=== PATIENT | male | born 1965 | race Caucasian/White ===

== ENCOUNTER 2016-12-17 14:42 | Emergency (ER) | payer OTHER ==
--- NOTE | 2016-12-17 15:27 | DIAGNOSTIC IMAGING REPORT ---
PROCEDURE: XR CHEST 1 VIEW INDICATION: CHEST PAIN TECHNIQUE: Portable AP view (1515 hours). COMPARISON: Compared to chest x-ray on 12/26/2012. FINDINGS: Allowing for suboptimal inspiration and underexposure, there is mild to moderate basilar volume loss. Mid and upper lungs are clear. Heart and mediastinum are normal. Thorax is normal. IMPRESSION: 1. Allowing for suboptimal inspiration, there is mild to moderate basilar volume loss. 2. Otherwise negative chest.
--- NOTE | 2016-12-17 18:23 | ED NURSING NOTES ---
Clinical Report - Nurses [facility] [address] [place] [address] 12/17/2016 14:42 Patient: ELROY BAKER TRIAGE Triage time 14:52. Chief Complaint: CHEST PAIN. Alert. No acute distress. SEPSIS SCREEN: Sepsis Screen. Negative (no infection suspected/documented). --14:59 Minerva Randolph R.N. 14:52 12/17/16. BP: 152/107. HR: 95. RR: 18. O2 saturation: 95%. Temp: 97.6 F (oral). Pain level now: 0/10. --14:59 Minerva Randolph R.N. Weight: 238.1 kg stated. Height/Length: 76 inches Per Patient. BMI: 63.9. --14:57 Minerva Randolph R.N. Medications Metoprolol Tartrate Oral 100 mg. --15:42 Minerva Randolph R.N. Warfarin Sodium Oral 5 mg. --15:42 Minerva Randolph R.N. Glipizide Oral 2mg. --15:42 Minerva Randolph R.N. Morphine Sulfate ER Beads Oral 60 mg. --15:43 Minerva Randolph R.N. Nitroglycerin Translingual, as needed. --15:43 Minerva Randolph R.N. Lisinopril Oral 40 mg. --15:46 Minerva Randolph R.N. MetFORMIN HCl Oral (Tablet 1000 mg). --15:47 Minerva Randolph R.N. Allergies Penicillin. --14:57 Minerva Randolph R.N. Codeine. --14:57 Minerva Randolph R.N. Bees. --14:57 Minerva Randolph R.N. History Arrived by EMS. Historian: patient. This started just prior to arrival. ( Pt was at home watching TV when he had sudden 5/10 CP. He took some nitro and it resolved however it returned. When EMS arrived he was pain free.). He has had difficulty breathing. 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 PAST MEDICAL HX: Diabetes mellitus. Hypertension. Immunizations: up-to-date. SOCIAL HX: Smoker- current status unknown. No alcohol use or drug use. SELF HARM ASSESSMENT: A self harm assessment was performed. The patient answered "no" to the question "Do you have thoughts of harming or killing yourself?". ABUSE ASSESSMENT: Abuse assessment: ("yes") The patient was asked "Do you feel safe in your home?". --14:59 Minerva Randolph R.N. Primary physician (Feliciano). --15:00 Minerva Randolph R.N. PHYSICAL ASSESSMENT To room via stretcher. GENERAL / NEURO / PSYCH: Alert. Oriented X 4. Appears anxious. CVS: Cardiac rhythm: atrial fib/flutter. EXTREMITIES: No lower extremity edema. SKIN: Skin is moderately diaphoretic. Skin is non-tender. --15:01 Minerva Randolph R.N. NURSING PROGRESS NOTES Oxygen administered. Monitoring of patient in place. Blood samples drawn. Patient gowned. Reassurance given. Call light placed in reach. Side rails up. Bed placed in lowest position. Brakes of bed on. Patient ready for evaluation- chart flagged and ED physician notified. --15:02 Minerva Randolph R.N. Patient identifiers checked. --15:02 Minerva Randolph R.N. 14:48 12/17/2016 Site #1 started prior to arrival by EMS via IV in the left antecubital space with an 20g angiocath. Blood drawn: rainbow set. Labeled in the presence of the patient and sent to the lab. --15:03 Minerva Randolph R.N. 15:18 12/17/16. EKG time: (9239). EKG was performed by a tech and shown to the ED physician. --15:19 Onel Gomez 15:41 12/17/2016 Morphine IVP 8 mg given. via site #1. Allergies verified, confirmed 5 rights and sedative warning given to the patient. IV patency established. IV site checked: no pain, redness, or swelling. IV flushed thoroughly pre- and post-medication administration. IVP given by RN. --15:41 Minerva Randolph R.N. 17:36 12/17/2016 Morphine IVP 8 mg given over 2 minute(s) via site #1. IV patency established. IV site checked: no pain, redness, or swelling. IV flushed thoroughly pre- and post-medication administration. --17:36 Angela Pitt R.N. ( medicated for nurse who is unavailable at the moment. nurse informed.). --17:40 Angela Pitt R.N. 17:39 12/17/16. Pain level now 8/10. --17:40 Angela Pitt R.N. DISPOSITION / DISCHARGE Departure time: 1826. Condition at departure: improved. No learning barriers present. Discharge instructions provided and reviewed with the patient and family. Reviewed referral to a foreign food cook specialty and family practice for followup. Patient and family verbalized understanding. Written instructions provided. The patient was discharged home and accompanied by family. He left the Emergency Department in a wheelchair and via private vehicle. --18:37 Kamini Workman R.N. 18:26 12/17/16. BP: 132/81. HR: 78. RR: 17. O2 saturation: 97%. Temp: 98 F. Pain level now: 0/10. --18:37 Kamini Workman R.N. 18:25 12/17/2016 Site #1 removed upon discharge. Catheter intact. Bandage applied. --18:38 Kamini Workman R.N. Locked/Released at 12/17/2016 18:38 by Kamini Workman R.N.
--- NOTE | 2016-12-17 18:23 | ED ORDER SUMMARY ---
..... Patient: ELROY BAKER OrderSheet [facility] VisitID: [id number] [address] [place] [address] 51y, M Registration Date/Time: 12/17/2016 ORDER SHEET Weight: 238.1 kg (stated) Allergies: Penicillin, Codeine, Bees GENERAL ORDERS: Chest 1V Urgent (14:56 12/17/2016 Ayana Blanc) (Ack 14:59 KHoerner) (15:26 JBest R.N.) Bomb Squad Commander (Continuous) (CP) (14:56 12/17/2016 Ayana Blanc) (14:59 KHoerner) CBC w Diff Urgent (14:56 12/17/2016 Ayana Blanc) (Ack 14:59 KATHLEENoerner) (15:04 JBest R.N.) CMP Urgent (14:56 12/17/2016 Ayana Blanc) (Ack 14:59 KATHLEENoerner) (15:04 JBest R.N.) UA-Culture if indicated Urgent (14:56 12/17/2016 Ayana Blanc) (Ack 14:59 KATHLEENoerner) (15:04 JBest R.N.) PT with INR Urgent (14:56 12/17/2016 Ayana Blanc) (Ack 14:59 KATHLEENoerner) (15:04 JBest R.N.) PTT Urgent (14:56 12/17/2016 Ayana Blanc) (Ack 14:59 KATHLEENoercamryn) (15:04 JBest R.N.) Troponin-I Urgent (14:56 12/17/2016 Ayana Blanc) (Ack 14:59 KATHLEENoerner) (15:04 JBest R.N.) BNP Urgent (14:56 12/17/2016 Ayana Blanc) (Ack 14:59 KATHLEENoercamryn) (15:04 JBest R.N.) Pulse oximeter (14:56 12/17/2016 Ayana Blanc) (15:04 JBest R.N.) Oxygen (2 L/min) (NC) (14:56 12/17/2016 Ayana Blanc) (15:04 JBest R.N.) EKG - ER Stat (14:56 12/17/2016 Ayana Blanc) (14:59 KATHLEENoercamryn) Consult - Diesel Engine Mechanic (Prov) (16:52 12/17/2016 Ayana Blanc) (Ack 16:53 KATHLEENoercamryn) (16:57 oer) Troponin-I (redraw once now) Urgent (17:15 12/17/2016 Ayana Blanc) (17:28 JBest R.N.) MEDICATION ORDERS: IV FLUIDS: IV Saline Lock (14:56 12/17/2016 Ayana Blanc) (15:05 Galen R.N.) Morphine IV 8 mg (HIGH ALERT MEDICATION, NOW) (15:24 12/17/2016 Ayana Blanc) (15:41 JBraven R.N.) Morphine IV 8 mg (HIGH ALERT MEDICATION, NOW) (17:33 12/17/2016 Ayana Blanc) (17:36 SBalde R.N.) ORDER SHEET NOTES: [Electronically signed by Kamini Workman R.N. (18:38 12/17/2016)] [Electronically signed by Rajeev Pearl Dr. (18:35 12/19/2016)] [Electronically locked/signed by Kamini Workman R.N. (18:38 12/17/2016)]
--- NOTE | 2016-12-17 18:23 | ED ORDER SUMMARY ---
..... Patient: ELROY BAKER OrderSheet [facility] VisitID: [id number] [address] [place] [address] 51y, M Registration Date/Time: 12/17/2016 ORDER SHEET Weight: 238.1 kg (stated) Allergies: Penicillin, Codeine, Bees GENERAL ORDERS: Chest 1V Urgent (14:56 12/17/2016 Ayana Blanc) (Ack 14:59 KHoerner) (15:26 JBest R.N.) Cisco Network Engineer (Continuous) (CP) (14:56 12/17/2016 Ayana Blanc) (14:59 KHoerner) CBC w Diff Urgent (14:56 12/17/2016 Ayana Blanc) (Ack 14:59 KATHLEENoerner) (15:04 JBest R.N.) CMP Urgent (14:56 12/17/2016 Ayana Blanc) (Ack 14:59 KATHLEENoerner) (15:04 JBest R.N.) UA-Culture if indicated Urgent (14:56 12/17/2016 Ayana Blanc) (Ack 14:59 KATHLEENoerner) (15:04 JBest R.N.) PT with INR Urgent (14:56 12/17/2016 Ayana Blanc) (Ack 14:59 KATHLEENoerner) (15:04 JBest R.N.) PTT Urgent (14:56 12/17/2016 Ayana Blanc) (Ack 14:59 KATHLEENoercamryn) (15:04 JBest R.N.) Troponin-I Urgent (14:56 12/17/2016 Ayana Blanc) (Ack 14:59 KATHLEENoerner) (15:04 JBest R.N.) BNP Urgent (14:56 12/17/2016 Ayana Blanc) (Ack 14:59 KATHLEENoercamryn) (15:04 JBest R.N.) Pulse oximeter (14:56 12/17/2016 Ayana Blanc) (15:04 JBest R.N.) Oxygen (2 L/min) (NC) (14:56 12/17/2016 Ayana Blanc) (15:04 JBest R.N.) EKG - ER Stat (14:56 12/17/2016 Ayana Blanc) (14:59 KATHLEENoercamryn) Consult - Management Architect (Prov) (16:52 12/17/2016 Ayana Blanc) (Ack 16:53 KATHLEENoercamryn) (16:57 oer) Troponin-I (redraw once now) Urgent (17:15 12/17/2016 Ayana Blanc) (17:28 JBest R.N.) MEDICATION ORDERS: IV FLUIDS: IV Saline Lock (14:56 12/17/2016 Ayana Blanc) (15:05 Galen R.N.) Morphine IV 8 mg (HIGH ALERT MEDICATION, NOW) (15:24 12/17/2016 Ayana Blanc) (15:41 JBraven R.N.) Morphine IV 8 mg (HIGH ALERT MEDICATION, NOW) (17:33 12/17/2016 Ayana Blanc) (17:36 SBalde R.N.) ORDER SHEET NOTES: [Electronically signed by Kamini Workman R.N. (18:38 12/17/2016)] [Electronically signed by Rajeev Pearl Dr. (18:35 12/19/2016)] [Electronically locked/signed by Kamini Workman R.N. (18:38 12/17/2016)]
--- NOTE | 2016-12-17 18:23 | ED NURSING NOTES ---
Clinical Report - Nurses Located Within [facility] [address] [place] [address] 12/17/2016 14:42 Patient: ELROY BAKER TRIAGE Triage time 14:52. Chief Complaint: CHEST PAIN. Alert. No acute distress. SEPSIS SCREEN: Sepsis Screen. Negative (no infection suspected/documented). --14:59 Minerva Randolph R.N. 14:52 12/17/16. BP: 152/107. HR: 95. RR: 18. O2 saturation: 95%. Temp: 97.6 F (oral). Pain level now: 0/10. --14:59 Minerva Randolph R.N. Weight: 238.1 kg stated. Height/Length: 76 inches Per Patient. BMI: 63.9. --14:57 Minerva Randolph R.N. Medications Metoprolol Tartrate Oral 100 mg. --15:42 Minerva Randolph R.N. Warfarin Sodium Oral 5 mg. --15:42 Minerva Randolph R.N. Glipizide Oral 2mg. --15:42 Minerva Randolph R.N. Morphine Sulfate ER Beads Oral 60 mg. --15:43 Minerva Randolph R.N. Nitroglycerin Translingual, as needed. --15:43 Minerva Randolph R.N. Lisinopril Oral 40 mg. --15:46 Minerva Randolph R.N. MetFORMIN HCl Oral (Tablet 1000 mg). --15:47 Minerva Randolph R.N. Allergies Penicillin. --14:57 Minerva Randolph R.N. Codeine. --14:57 Minerva Randolph R.N. Bees. --14:57 Minerva Randolph R.N. History Arrived by EMS. Historian: patient. This started just prior to arrival. ( Pt was at home watching TV when he had sudden 5/10 CP. He took some nitro and it resolved however it returned. When EMS arrived he was pain free.). He has had difficulty breathing. 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 PAST MEDICAL HX: Diabetes mellitus. Hypertension. Immunizations: up-to-date. SOCIAL HX: Smoker- current status unknown. No alcohol use or drug use. SELF HARM ASSESSMENT: A self harm assessment was performed. The patient answered "no" to the question "Do you have thoughts of harming or killing yourself?". ABUSE ASSESSMENT: Abuse assessment: ("yes") The patient was asked "Do you feel safe in your home?". --14:59 Minerav Randolph R.N. Primary physician (Feliciano). --15:00 Minerva Randolph R.N. PHYSICAL ASSESSMENT To room via stretcher. GENERAL / NEURO / PSYCH: Alert. Oriented X 4. Appears anxious. CVS: Cardiac rhythm: atrial fib/flutter. EXTREMITIES: No lower extremity edema. SKIN: Skin is moderately diaphoretic. Skin is non-tender. --15:01 Minerva Randolph R.N. NURSING PROGRESS NOTES Oxygen administered. Monitoring of patient in place. Blood samples drawn. Patient gowned. Reassurance given. Call light placed in reach. Side rails up. Bed placed in lowest position. Brakes of bed on. Patient ready for evaluation- chart flagged and ED physician notified. --15:02 Minerva Randolph R.N. Patient identifiers checked. --15:02 Minerva Randolph R.N. 14:48 12/17/2016 Site #1 started prior to arrival by EMS via IV in the left antecubital space with an 20g angiocath. Blood drawn: rainbow set. Labeled in the presence of the patient and sent to the lab. --15:03 Minerva Randolph R.N. 15:18 12/17/16. EKG time: (1830). EKG was performed by a tech and shown to the ED physician. --15:19 Onel Gomez 15:41 12/17/2016 Morphine IVP 8 mg given. via site #1. Allergies verified, confirmed 5 rights and sedative warning given to the patient. IV patency established. IV site checked: no pain, redness, or swelling. IV flushed thoroughly pre- and post-medication administration. IVP given by RN. --15:41 Minerva Randolph R.N. 17:36 12/17/2016 Morphine IVP 8 mg given over 2 minute(s) via site #1. IV patency established. IV site checked: no pain, redness, or swelling. IV flushed thoroughly pre- and post-medication administration. --17:36 Angela Pitt R.N. ( medicated for nurse who is unavailable at the moment. nurse informed.). --17:40 Angela Pitt R.N. 17:39 12/17/16. Pain level now 8/10. --17:40 Angela Pitt R.N. DISPOSITION / DISCHARGE Departure time: 1826. Condition at departure: improved. No learning barriers present. Discharge instructions provided and reviewed with the patient and family. Reviewed referral to a skydiving instructor and family practice for followup. Patient and family verbalized understanding. Written instructions provided. The patient was discharged home and accompanied by family. He left the Emergency Department in a wheelchair and via private vehicle. --18:37 Kamini Workman R.N. 18:26 12/17/16. BP: 132/81. HR: 78. RR: 17. O2 saturation: 97%. Temp: 98 F. Pain level now: 0/10. --18:37 Kamini Workman R.N. 18:25 12/17/2016 Site #1 removed upon discharge. Catheter intact. Bandage applied. --18:38 Kamini Workman R.N. Locked/Released at 12/17/2016 18:38 by Kamini Workman R.N.
--- NOTE | 2016-12-17 18:23 | ED CLINICAL REPORT ---
Clinical Report - Physicians/Mid Levels [facility] [address] [place] [address] 12/17/2016 14:42 Patient: ELROY BAKER Time Seen: 1450. Arrived- By ambulance. Historian- patient and EMS personnel. HISTORY OF PRESENT ILLNESS Chief Complaint: CHEST PAIN. It is described as tightness and it is described as located in the right chest area and radiating (middle chest). This started today, is still present but is better now and is now gone. It was abrupt in onset and has been constant. Onset during rest. At its maximum, severity described as moderate. When seen in the E.D., it was gone. Modifying factors- relieved by nitroglycerin (one). Not worsened by anything. No nausea, vomiting, difficulty breathing or diaphoresis. (Patient reports no unilateral leg swelling, hemoptysis, recent trauma, or recent surgery.). No additional chest pain. Similar symptoms previously: (a few times). Recent medical care: Not recently seen/assessed. REVIEW OF SYSTEMS No fever, chills, pedal edema or skin rash. All systems otherwise negative, except as recorded above. PAST HISTORY See nurses notes. Risk factors for DVT/pulmonary embolism- obesity. Denies the following risk factors for DVT/PE - history of DVT and pulmonary embolism, recent surgery, recent OH and cancer. Denies the following risk factors for DVT/PE - clotting disorder, estrogens, immobility, advanced in age and vena cava filter. Medications: MetFORMIN HCl Oral (Tablet 1000 mg). Lisinopril Oral 40 mg. Nitroglycerin Translingual, as needed. Morphine Sulfate ER Beads Oral 60 mg. Glipizide Oral 2mg. Warfarin Sodium Oral 5 mg. Metoprolol Tartrate Oral 100 mg. Allergies: Bees. Codeine. Penicillin. SOCIAL HISTORY Smoker- current status unknown. No alcohol use or drug use. Recent travel. Is a local resident. FAMILY HISTORY Negative. ADDITIONAL NOTES The nursing notes have been reviewed. PHYSICAL EXAM Vital Signs: 12/17/2016 14:52 BP: 152/107. HR: 95. RR: 18. O2 saturation: 95%. Temp: 97.6 F. Pain level now: 0/10. Oxygen saturation normal. Appearance: Alert. Oriented X3. No acute distress. (Above-average BMI. polite, cooperative, pleasant.). Eyes: Pupils equal, round and reactive to light. Eyes normal inspection. Neck: Normal inspection. Neck supple. No JVD. CVS: Normal heart rate and rhythm. Heart sounds normal. Pulses normal. Respiratory: No respiratory distress. Breath sounds normal. Chest nontender. No rales, rhonchi or wheezes. Abdomen: Soft and nontender. Bowel sounds normal. Back: Normal external inspection. Skin: Skin warm and dry. Normal skin color. No rash. Normal skin turgor. Extremities: Extremities exhibit normal ROM. No lower extremity edema. LABS, X-RAYS, AND EKG EKG: No acute process. No acute ischemia. Normal EKG. Normal sinus rhythm. Normal P waves. Normal QASIM. Normal QRS complex. Normal axis. Normal ST and T waves, QT and QTc. The study has been interpreted contemporaneously by me. The study has been independently viewed by me. The EKG appears to be a good tracing. Chest X-ray: (PROCEDURE: XR CHEST 1 VIEW INDICATION: CHEST PAIN TECHNIQUE: Portable AP view (1515 hours). COMPARISON: Compared to chest x-ray on 12/26/2012. FINDINGS: Allowing for suboptimal inspiration and underexposure, there is mild to moderate basilar volume loss. Mid and upper lungs are clear. Heart and mediastinum are normal. Thorax is normal. IMPRESSION: 1. Allowing for suboptimal inspiration, there is mild to moderate basilar volume loss. 2. Otherwise negative chest.). Views: PA. Technique: under penetrated. The X-rays were independently viewed by me and interpreted by the radiologist. The X-rays were discussed with the radiologist (via pacs). Laboratory Tests: CBC w Diff: (DEONTE: 12/17/2016 14:55) ( MsgRcvd 12/17/2016 15:15) Final results Test Result Flag Units (Reference) WHITE BLOOD COUNT 10.1 K/uL (4.5-11.5) RED BLOOD COUNT 5.55 M/uL (4.50-5.90) HEMOGLOBIN 16.5 gm/dL (13.5-17.5) HEMATOCRIT 49.6 % (41.0-53.0) MEAN CELL VOLUME 89 fL (80-100) MEAN CORPUSCULAR HGB 30 pg (26-34) MEAN CORPUSCULAR HGB CONC 33 g/dL (31-37) RED CELL DISTRIBUTION WIDTH 13.3 % (11.6-14.8) PLATELET COUNT 199 K/uL (150-400) NEUTROPHIL % 70.6 % (50-75) LYMPH % 19.0 L % (25-40) MONO % 6.9 % (3-14) EOSINOPHIL % 3.0 % (0-4) BASOPHIL % 0.5 % (0-2) PT with INR: (DEONTE: 12/17/2016 14:55) ( [facility] 12/17/2016 15:27) Final results Test Result Flag Units (Reference) INR 1.2 (0.8-1.2) Low Intensity Therapy: INR 1.5-2.0 PT range 18.5-23.1Mod.Intensity Therapy: INR 2.0-3.0 PT range 23.1-31.5High Intensity Therapy: INR 2.5-3.5 PT range 27.4-35.5High Intensity Therapy 2: INR 3.0-4.0 PT range 31.5-39.3 APTT 35 H SECONDS (24-34) Troponin-I: (DEONTE: 12/17/2016 17:25) ( [facility] 12/17/2016 17:46) Final results Test Result Flag Units (Reference) TROPONIN I <0.05 ng/mL (0.00-1.5) TROPONIN REFERENCE RANGE:<0.1 NEGATIVE0.1-1.5 INDETERMINANT>1.5 POSITIVE BNP: (DEONTE: 12/17/2016 14:55) ( [facility] 12/17/2016 15:39) Final results Test Result Flag Units (Reference) B-TYPE NATRIURETIC PEPTIDE 69.1 pg/ml (5-100) CMP: (DEONTE: 12/17/2016 14:55) ( [facility] 12/17/2016 15:25) Final results Test Result Flag Units (Reference) GLUCOSE 324 H mg/dL (70-110) BUN 11 mg/dL (7-18) CREATININE 0.9 mg/dL (0.6-1.3) Estimated GFR >60 mL/min Estimated GFR- >60 mL/min Note: Persistent reduction over 3 months in eGFR<60 mL/min/1.73 m2 defines CKD. Patients with eGFR values>=60 mL/min/1.73 m2 may also have CKD if evidence ofpersistent proteinuria. Additional information may be foundat www.[email or web address].org. SODIUM 139 mmol/L (136-145) POTASSIUM 4.3 mmol/L (3.5-5.1) CHLORIDE 100 mmol/L (98-107) CARBON DIOXIDE 28 mmol/L (21-32) CALCIUM 9.4 mg/dL (8.5-10.1) TOTAL PROTEIN 7.9 g/dL (6.4-8.2) ALBUMIN 3.4 g/dL (3.3-5.0) BILIRUBIN, TOTAL 0.4 mg/dL (0.0-1.0) ALKALINE PHOSPHATASE 174 H U/L (46-116) AST (SGOT) 75 H U/L (15-37) ALT (SGPT) 163 H U/L (12-78) TROPONIN I <0.05 L ng/mL (0.00-1.5) TROPONIN REFERENCE RANGE:<0.1 NEGATIVE0.1-1.5 INDETERMINANT>1.5 POSITIVE . PROGRESS AND PROCEDURES Course of Care: he patient is a pleasant 51-year-old male presenting for evaluation of chest pain. Onset of symptoms is approximately 1 hour prior to arrival. Patient is currently resting in bed and in no acute distress. Patient is currently pain-free after taking nitroglycerin. At this time working diagnosis isacute myocardial infarction, pulmonary embolism, pneumonia,spontaneous pneumothorax. No other abnormalities noted on patient's physical exam and history. Patient will be evaluated with laboratory studies including EKG and chest x-ray. Patient is agreeable to the treatment and plan. Patient is noted to be a low risk on the well's criteria. do not feel further workup for pulmonary embolism is warranted at this time. Patient also does not have any pain or shortness of breath at this time. Initial troponin is noted to be negative. No evidence of congestive heart failure at this time. Rest of the patient's workup is unremarkable. Chest x-ray is clear however because of the patient's body habitus is slightly difficult to evaluate fully. We'll patient is here in the emergency department he expressed his uncomfortable situation with the bed. Patient reports he has a history of chronic back pain. No other abnormalities noted. Patient reports that his back started to hurt while sitting in the bed. Do not feel symptoms are consistent with thoracic aortic dissection as the patient does not have any pain at this time. Consult was placed to cardiology for further recommendations on the patient'spresentation here in the emergency department. Was able to speak to the on-call physician at [facility]. In reviewing the patient's past medical history, he had not received a stress test Patient is currently pain-freeandcardiology recommended patient be scheduled for an outpatient stress test. A note was placed with the patient's profile on the computer system For the scheduling department. Patient was given contact informationto schedule an appointment with a malt roaster. No further recommendations made. Patient is given pain medication while here in the emergency department for the chronic back pain and the uncomfortable bed. Patient wanted to leave the emergency department because of the uncomfortable bed. The patient was given additional pain medication and encouraged to wait for his second troponin given his time course of chest pain. Patient was agreeable to staying. The patient's a second troponin had returned and was unremarkable. Troponin is less than they detectable around. Because the patient's negative troponins 2,feel the patient is a good outpatient candidate. Head discussion with patient in regards to chest pain here in the emergency department as well as his workup here and diagnosis, home care, follow-up, and return precautions. All questions have been answered. The patient expressed Understanding of these instructions and was agreeable to them. Consult obtained from cardiology. Dr. Owens. CLINICAL IMPRESSION Chest pain characterized as "discomfort" .12 lead EKG performed. (right sided). 12/17/2016 14:52 BP: 152/107. HR: 95. RR: 18. O2 saturation: 95%. Temp: 97.6 F. Pain level now: 0/10. Blood pressure normal. Oxygen saturation normal. Chronic atrial flutter with controlled rate. INSTRUCTIONS Warnings: GENERAL WARNINGS: Return or contact your physician immediately if your condition worsens or changes unexpectedly, if not improving as expected, or if other problems arise. SPECIFICALLY, return if you develop chest, neck, jaw, shoulder, arm, or back pain, difficulty breathing, a fluttering sensation in your chest, lightheadedness, fainting, excessive fatigue, or sudden sweating. Your Current Medications: CONTINUE TAKING THE FOLLOWING MEDICATIONS: Glipizide Oral : 2mg. Lisinopril Oral : 40 mg. MetFORMIN HCl Oral : Tablet 1000 mg. Metoprolol Tartrate Oral : 100 mg. Morphine Sulfate ER Beads Oral : 60 mg. Nitroglycerin Translingual : prn. Warfarin Sodium Oral : 5 mg. Follow-up: Return to the emergency department as needed. Screening today revealed the patient's blood pressure to be in the hypertensive range. Blood pressure screening was not performed during this visit because the patient has an active diagnosis of hypertension. The patient should follow up with a primary care provider for blood pressure management. Understanding of the discharge instructions verbalized by patient. Follow-up with: Follow up in three days. Reason for referral: recheck today's concerns. Summary of care provided to patient via paper. Follow-up with: Follow up. Reason for referral: Cardiology at the [facility]. Call [phone] for an appointment. Please tell them you were here in the ED. . Summary of care provided to patient via paper. (Electronically signed by Rajeev Pearl Dr. 12/19/2016 18:35)
--- NOTE | 2016-12-19 18:35 | ED MED RECONCILIATION SUMMARY ---
Patient: ELROY BAKER Medication Reconciliation Report [facility] VisitID: [id number] [address] [place] [address] 51y, M Registration Date/Time: 12/17/2016 Weight: 238.1 kg Height/Length: 76 in. BMI: 63.9 ALLERGIES: Bees, Codeine, Penicillin The patient's Home Medications are listed below: CONTINUE TAKING THE FOLLOWING MEDICATIONS: Glipizide Oral 2mg Lisinopril Oral 40 mg MetFORMIN HCl Oral (1000 mg) Metoprolol Tartrate Oral 100 mg Morphine Sulfate ER Beads Oral 60 mg Nitroglycerin Translingual Warfarin Sodium Oral 5 mg The source(s) of the original Home Medication information: Not obtained. The following Medications were given to the patient in the Emergency Department: Morphine [IVP] IVP 8 mg, administered: 12/17/2016 3:41:00 PM Morphine [IVP] IVP 8 mg, administered: 12/17/2016 5:36:00 PM The following Medications were prescribed to the patient: None.
--- NOTE | 2016-12-19 18:35 | ED MED RECONCILIATION SUMMARY ---
Patient: ELROY BAKER Medication Reconciliation Report [facility] VisitID: [id number] [address] [place] [address] 51y, M Registration Date/Time: 12/17/2016 Weight: 238.1 kg Height/Length: 76 in. BMI: 63.9 ALLERGIES: Bees, Codeine, Penicillin The patient's Home Medications are listed below: CONTINUE TAKING THE FOLLOWING MEDICATIONS: Glipizide Oral 2mg Lisinopril Oral 40 mg MetFORMIN HCl Oral (1000 mg) Metoprolol Tartrate Oral 100 mg Morphine Sulfate ER Beads Oral 60 mg Nitroglycerin Translingual Warfarin Sodium Oral 5 mg The source(s) of the original Home Medication information: Not obtained. The following Medications were given to the patient in the Emergency Department: Morphine [IVP] IVP 8 mg, administered: 12/17/2016 3:41:00 PM Morphine [IVP] IVP 8 mg, administered: 12/17/2016 5:36:00 PM The following Medications were prescribed to the patient: None.
--- NOTE | 2016-12-19 18:35 | ED MAR SUMMARY ---
..... Medication Administration Record [facility] [address] [place] [address] Patient: ELROY BAKER Visit ID: [id number] 51y, M Weight: 238.1 kg Height/Length: 76 in BMI: 63.9 ALLERGIES: Bees, Codeine, Penicillin Given 15:41 12/17/2016 Minerva Randolph RBev Medication Administered: MORPHINE [IVP], Dose: 8 mg IVP, Site: #1 left AC. Medication Ordered: Morphine IV 8 mg (HIGH ALERT MEDICATION, NOW). Given 17:36 12/17/2016 Angela Pitt R.N. Medication Administered: MORPHINE [IVP], Dose: 8 mg IVP over 2 minute(s), Site: #1 left AC. Medication Ordered: Morphine IV 8 mg (HIGH ALERT MEDICATION, NOW).
--- NOTE | 2016-12-19 18:35 | ED DISCHARGE INSTRUCTIONS ---
Patient: ELROY BAKER General Instructions [facility] VisitID: [id number] [place] [address] 51y, M Registration Date/Time: 12/17/2016 Chest pain characterized as "discomfort" .12 lead EKG performed. (right sided). 12/17/2016 14:52 BP: 152/107. HR: 95. RR: 18. O2 saturation: 95%. Temp: 97.6 F. Pain level now: 0/10. Blood pressure normal. Oxygen saturation normal. Chronic atrial flutter with controlled rate. INSTRUCTIONS Warnings: GENERAL WARNINGS: Return or contact your physician immediately if your condition worsens or changes unexpectedly, if not improving as expected, or if other problems arise. SPECIFICALLY, return if you develop chest, neck, jaw, shoulder, arm, or back pain, difficulty breathing, a fluttering sensation in your chest, lightheadedness, fainting, excessive fatigue, or sudden sweating. Your Current Medications: CONTINUE TAKING THE FOLLOWING MEDICATIONS: Glipizide Oral : 2mg. Lisinopril Oral : 40 mg. MetFORMIN HCl Oral : Tablet 1000 mg. Metoprolol Tartrate Oral : 100 mg. Morphine Sulfate ER Beads Oral : 60 mg. Nitroglycerin Translingual : prn. Warfarin Sodium Oral : 5 mg. Follow-up: Return to the emergency department as needed. Screening today revealed the patient's blood pressure to be in the hypertensive range. Blood pressure screening was not performed during this visit because the patient has an active diagnosis of hypertension. The patient should follow up with a primary care provider for blood pressure management. Understanding of the discharge instructions verbalized by patient. Follow-up with: Follow up in three days. Reason for referral: recheck today's concerns. Summary of care provided to patient via paper. Follow-up with: Follow up. Reason for referral: Cardiology at the [facility]. Call [phone] for an appointment. Please tell them you were here in the ED. . Summary of care provided to patient via paper. ADDITIONAL INFORMATION Chest Pain, Uncertain Cause Chest pain can happen for a number of reasons. Sometimes the cause can not be determined. If yourcondition does not seem serious, and your pain does not appear to be coming from your heart, your doctor may recommend watching it closely. Sometimes the signs of a serious problem take more time to appear. Therefore, watch for the warning signs listed below. Home care After your visit, follow these recommendations: Rest today and avoid strenuous activity. Take any prescribed medicine as directed. Follow-up care Follow up with your doctor or this facility as instructed or if you do not start to feel better within 24 hours. Call 911 Get immediate medical attention if any of the following occur: A change in the type of pain: if it feels different, becomes more severe, lasts longer, or begins to spread into your shoulder, arm, neck, jaw or back Shortness of breath or increased pain with breathing Weakness, dizziness, or fainting Rapid heart beat Get prompt medical attention Call your doctor right away if any of the following occur: Cough with dark colored sputum (phlegm) or blood Fever of 100.4F(38C) or higher, or as directed by your health care provider Swelling, pain or redness in one leg Atrial Flutter Atrial flutteris a condition where the heart beats at a very rapid rate. It is due to a disturbance in the electrical pathways of the heart. It is a sign of heart disease or other health problems affecting the heart. The most common symptom ispalpitations. This is the feeling that your heart is fluttering or beating fast or hard. When the heart beats too fast, it does not pump blood very well. This can cause other symptoms such as anxiety, fatigue, shortness of breath, chest pain, dizziness or fainting. If this is your first episode of atrial flutter, and you have no heart or lung disease, you may never have another episode again. But in most cases, atrial flutter comes and goes, lasting from a few hours to a couple of days. Sometimes the atrial flutter does not ever go away and becomes chronic. Atrial flutter may be caused by disease of the heart or other conditions in the body that affect the heart: Coronary artery disease (arteriosclerosis) High blood pressure Disease of the heart valves Enlarged heart Atrial flutter can occur without heart disease due to: Overactive thyroid (hyperthyroid) Chronic lung disease (COPD, emphysema, bronchitis) Heavy alcohol use Cardiac stimulants (cocaine, amphetamines, diet pills, certain decongestant cold medicines, caffeine or nicotine) Infection Treating or removing these causes will improve success in the treatment of atrial flutter and reduce your risk of recurrence. Atrial flutter can alternate back and forth with another abnormal rhythm called atrial fibrillation. The risk of stroke is higher with these conditions. Proper treatment can reduce your risk. Home Care: Resume your usual activities as soon as you are feeling back to normal. If you smoke, stop smoking. Contact your doctor or a local stop-smoking program for help. Avoid stimulants (cocaine, amphetamines, diet pills, certain decongestant cold medicines, caffeine, or nicotine). If medicine is prescribed to prevent recurrence of atrial fibrillation, take it exactly as directed. Some medicines must be taken daily, not just when you have symptoms, in order to be effective. If you were prescribed warfarin (Coumadin) to reduce stroke risk, have your blood tested on a regular basis as advised by your doctor. This will ensure that the dose is correct for you. Follow Up With Your Doctor Or As Advised By Our Staff. Get Prompt Medical Attention If Any Of The Following Occur: Increasing shortness of breath Swellingof the legs Unexpected weight gain Chest pain or palpitations (the sense that your heart is fluttering, beating fast or hard) Fever of 100.4F (38C) or higher, or as directed by your healthcare provider Cough with dark-colored or bloody sputum (mucus) Pain, redness, or swelling in one leg Signs of stroke: Weakness or numbness of an arm or leg or one side of the face Difficulty with speech or vision Extreme drowsiness, confusion, dizziness or fainting You have been given the following additional information: Chest Pain, Uncertain Cause Atrial Flutter (Electronically signed by Rajeev Pearl Dr. 12/19/2016 18:35)
--- NOTE | 2016-12-19 18:35 | ED MAR SUMMARY ---
..... Medication Administration Record [facility] [address] [place] [address] Patient: ELROY BAKER Visit ID: [id number] 51y, M Weight: 238.1 kg Height/Length: 76 in BMI: 63.9 ALLERGIES: Bees, Codeine, Penicillin Given 15:41 12/17/2016 Minerva Randolph RBev Medication Administered: MORPHINE [IVP], Dose: 8 mg IVP, Site: #1 left AC. Medication Ordered: Morphine IV 8 mg (HIGH ALERT MEDICATION, NOW). Given 17:36 12/17/2016 Angela Pitt R.N. Medication Administered: MORPHINE [IVP], Dose: 8 mg IVP over 2 minute(s), Site: #1 left AC. Medication Ordered: Morphine IV 8 mg (HIGH ALERT MEDICATION, NOW).
== END 2016-12-17 18:27 | disposition home or self-care (01) ==
LOC: ED SRH 14:42
DX: I48.92 Unspecified atrial flutter (principal); I10 Essential (primary) hypertension; E11.9 Type 2 diabetes mellitus without complications; Z79.01 Long term (current) use of anticoagulants; Z79.84 Long term (current) use of oral hypoglycemic drugs; Z88.0 Allergy status to penicillin; Z88.5 Allergy status to narcotic agent; F17.210 Nicotine dependence, cigarettes, uncomplicated
CPT/HCPCS: 90074; 90100; 90616; 91320; 94001; 94060; 95059

== ENCOUNTER 2017-03-17 23:07 | Emergency (ER) | payer OTHER ==
--- NOTE | 2017-03-18 04:02 | ED ORDER SUMMARY ---
..... 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 verbal order read back to Grayson MARTINEZ) (Ack 23:48 KPage-Kuchan R.N.) (1:50 KPage-Kuchan R.N.) Labetalol IV 20 mg (HIGH ALERT MEDICATION, NOW) (00:03/18/2017 Grayson MARTINEZ) (Ack 0:44 CBradburn R.N.) (0:46 CBradburn R.N.) Dilaudid IV 2 mg (HIGH ALERT MEDICATION, NOW) (00:03/18/2017 Grayson MARTINEZ) (Ack 0:44 CBradburn R.N.) (0:44 CBradburn R.N.) IV Saline Lock (00:30 03/18/2017 Grayson MARTINEZ) (0:53 CBradburn R.N.) Dilaudid IV 2 mg (HIGH ALERT MEDICATION, NOW) (02:35 03/18/2017 Grayson MARTINEZ) (Ack 2:35 HSoule) (2:50 KPage-Kuchan R.N.) Vasotec IV 2.5 mg (NOW) (02:39 03/18/2017 Grasyon MARTINEZ) (Ack 2:43 Mariano Blanton) (3:10 Belgica Blanton) Fentanyl IV 100 mcg (HIGH ALERT MEDICATION, NOW) (03:40 03/18/2017 Grayson MARTINEZ) (3:50 Belgica Blanton) ORDER SHEET NOTES: [Electronically signed by Jojo Abraham R.N. (04:36 03/18/2017)] [Electronically signed by Katelynn Nuno MD (18:31 03/30/2017)] [Electronically locked/signed by Jojo Abraham R.N. (04:36 03/18/2017)]
--- NOTE | 2017-03-18 04:02 | ED ORDER SUMMARY ---
..... 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 verbal order read back to Grayson MARTINEZ) (Ack 23:48 KPage-Kuchan R.N.) (1:50 KPage-Kuchan R.N.) Labetalol IV 20 mg (HIGH ALERT MEDICATION, NOW) (00:03/18/2017 Grayson MARTINEZ) (Ack 0:44 CBradburn R.N.) (0:46 CBradburn R.N.) Dilaudid IV 2 mg (HIGH ALERT MEDICATION, NOW) (00:03/18/2017 Grayson MARTINEZ) (Ack 0:44 CBradburn R.N.) (0:44 CBradburn R.N.) IV Saline Lock (00:30 03/18/2017 Grayson MARTINEZ) (0:53 CBradburn R.N.) Dilaudid IV 2 mg (HIGH ALERT MEDICATION, NOW) (02:35 03/18/2017 Grayson MARTINEZ) (Ack 2:35 HSoule) (2:50 KPage-Kuchan R.N.) Vasotec IV 2.5 mg (NOW) (02:39 03/18/2017 Grayson MARTINEZ) (Ack 2:43 Mariano Blanton) (3:10 Belgica Blanton) Fentanyl IV 100 mcg (HIGH ALERT MEDICATION, NOW) (03:40 03/18/2017 Grayson MARTINEZ) (3:50 Belgica Blanton) ORDER SHEET NOTES: [Electronically signed by Jojo Abraham R.N. (04:36 03/18/2017)] [Electronically signed by Katelynn Nuno MD (18:31 03/30/2017)] [Electronically locked/signed by Jojo Abraham R.N. (04:36 03/18/2017)]
--- NOTE | 2017-03-18 04:02 | ED CLINICAL REPORT ---
Clinical Report - Physicians/Mid Levels [facility] [address] [place] [address] 03/17/2017 23:08 Patient: ELROY BAKER Time Seen: 23:35. Arrived- By private vehicle. Historian- patient and family. HISTORY OF PRESENT ILLNESS Chief Complaint: HEADACHE. Is still present. This started about 2 days ago. It is described as "pain" and pressure. Located in the frontal region. The patient has had nausea. No preceding symptoms, blurred vision, photophobia, numbness or weakness. No vomiting. Similar symptoms previously: Recent medical care: Not recently seen/assessed. REVIEW OF SYSTEMS No fever, muscle aches, sinus pressure, ear pain or sore throat. No head injury, chest pain, difficulty breathing, cough or abdominal pain. No diarrhea, pain with urination, skin rash, enlarged lymph nodes or back pain. All systems otherwise negative, except as recorded above. PAST HISTORY Problems: Atrial Fibrillation. Cardiovascular Risk Factors. Atrial Flutter. Diabetes Mellitus. Hypertension. Alcohol Intoxication. Syncope. Tetanus Status. Immunizations. Back Pain. Additional Surgeries: Back Surgery. Tonsillectomy. Medications: AmLODIPine Besylate Oral. Isosorbide Mononitrate Oral. Januvia Oral. HydrALAZINE HCl Oral. MetFORMIN HCl Oral (Tablet 1000 mg). Metoprolol Tartrate Oral 100 mg. Morphine Sulfate ER Beads Oral 60 mg. Nitroglycerin Translingual, as needed. Warfarin Sodium Oral 5 mg. Glipizide Oral 2mg. Lisinopril Oral 40 mg. Allergies: Bees. Codeine. Penicillin. SOCIAL HISTORY Smoker- current status unknown. No alcohol use or drug use. ADDITIONAL NOTES The nursing notes have been reviewed. PHYSICAL EXAM Vital Signs: 03/17/2017 23:14 BP: 187/111. HR: 84. RR: 21. O2 saturation: 94%. Pain level now: 7/10. Have been reviewed. Appearance: Alert. No acute distress. (Pt appears mildly uncomfortable. He is morbidly obese.). Eyes: Pupils equal, round and reactive to light. Eyes normal inspection. ENT: Nose normal. Neck: Normal inspection. Neck supple. CVS: Normal heart rate and rhythm. Heart sounds normal. Pulses normal. Respiratory: No respiratory distress. Breath sounds normal. Abdomen: Soft and nontender. Back: Normal inspection. No CVA tenderness. Skin: Skin warm and dry. Normal skin color. No rash. Normal skin turgor. Extremities: Extremities exhibit normal ROM. No lower extremity edema. Neuro: Oriented X 3. Alert. Mood/affect normal. Speech normal. Cranial nerves normal (as tested). No cerebellar findings. No motor deficit. No sensory deficit. LABS, X-RAYS, AND EKG EKG: EKG time: (2330). Atrial flutter. Rate: 97. Atrioventricular block present. Normal QRS complex. Normal axis. Normal ST and T waves, QT and QTc. Prior EKG unavailable. The study has been interpreted contemporaneously by me. The study has been independently viewed by me. The EKG appears to be a good tracing. Rhythm Strip #1: Time: (2335). Rate= 94. Atrial flutter. Regular rhythm. Narrow QRS complexes. No ectopy. Conduction normal. Normal ST segments and T waves. The study was interpreted by me. Laboratory Tests: CBC w Diff: (DEONTE: 03/18/2017 00:01) ( MsgRcvd 03/18/2017 01:02) Final results Test Result Flag Units (Reference) WHITE BLOOD COUNT 10.1 K/uL (4.5-11.5) RED BLOOD COUNT 5.36 M/uL (4.50-5.90) HEMOGLOBIN 15.9 gm/dL (13.5-17.5) HEMATOCRIT 47.5 % (41.0-53.0) MEAN CELL VOLUME 89 fL (80-100) MEAN CORPUSCULAR HGB 30 pg (26-34) MEAN CORPUSCULAR HGB CONC 34 g/dL (31-37) RED CELL DISTRIBUTION WIDTH 13.4 % (11.6-14.8) PLATELET COUNT 203 K/uL (150-400) NEUTROPHIL % 74.7 % (50-75) LYMPH % 19.0 L % (25-40) MONO % 4.3 % (3-14) EOSINOPHIL % 1.5 % (0-4) BASOPHIL % 0.5 % (0-2) CHEM 13 PANEL: (DEONTE: 03/18/2017 00:01) ( MsgRcvd 03/18/2017 01:01) Final results Test Result Flag Units (Reference) GLUCOSE 218 H mg/dL (70-110) BUN 16 mg/dL (7-18) CREATININE 0.8 mg/dL (0.6-1.3) Estimated GFR >60 mL/min Estimated GFR- >60 mL/min Note: Persistent reduction over 3 months in eGFR<60 mL/min/1.73 m2 defines CKD. Patients with eGFR values>=60 mL/min/1.73 m2 may also have CKD if evidence ofpersistent proteinuria. Additional information may be foundat www.kidney.org. SODIUM 139 mmol/L (136-145) POTASSIUM 4.2 mmol/L (3.5-5.1) CHLORIDE 103 mmol/L (98-107) CARBON DIOXIDE 27 mmol/L (21-32) CALCIUM 9.5 mg/dL (8.5-10.1) TOTAL PROTEIN 7.7 g/dL (6.4-8.2) ALBUMIN 3.5 g/dL (3.3-5.0) BILIRUBIN, TOTAL 0.3 mg/dL (0.0-1.0) ALKALINE PHOSPHATASE 113 U/L (46-116) AST (SGOT) 15 U/L (15-37) ALT (SGPT) 35 U/L (12-78) MAGNESIUM 1.8 mg/dL (1.8-2.4) CPK 47 U/L (24-260) TROPONIN I <0.05 ng/mL (0.00-1.5) TROPONIN REFERENCE RANGE:<0.1 NEGATIVE0.1-1.5 INDETERMINANT>1.5 POSITIVE . Pulse Oximetry: 03/17/2017 23:14 O2 saturation: 94%. (FIO2 - room air). Interpretation: normal. PROGRESS AND PROCEDURES Course of Care: Pt was given multiple doses of Dilaudid, as well as labetolol, Vasotec, and fentanyl. His blood pressure did not immediately respond to medication, but ultimately, pt did improve. Pt was worked up with labs and an EKG, which were unremarkable. He was too heavy for the CT scanner, and MRI was not available. However, he was neurologically intact, and did ultimately improve, and I did not feel that transfer for CT was indicated at this time. Pt states he can see Dr. Wiggins tomorrow to follow up. Patient counseled in person regarding the patient's stable condition, test results and diagnosis. Old medical records reviewed. Disposition: Discharged. Condition: stable and improved. CLINICAL IMPRESSION Acute migraine and tension headache. Hypertensive headache INSTRUCTIONS Warnings: Further evaluation is necessary. It is very important to follow up with a physician. SEDATIVE MEDICATION: You were given sedative medication during your visit. Do not drive or operate dangerous machinery for 8 hours. GENERAL WARNINGS: Return or contact your physician immediately if your condition worsens or changes unexpectedly, if not improving as expected, or if other problems arise. Your Current Medications: CONTINUE TAKING THE FOLLOWING MEDICATIONS: AmLODIPine Besylate Oral. Glipizide Oral : 2mg. HydrALAZINE HCl Oral. Isosorbide Mononitrate Oral. Januvia Oral. Lisinopril Oral : 40 mg. MetFORMIN HCl Oral : Tablet 1000 mg. Metoprolol Tartrate Oral : 100 mg. Morphine Sulfate ER Beads Oral : 60 mg. Nitroglycerin Translingual : prn. Warfarin Sodium Oral : 5 mg. Prescription Medications: Oxycodone/APAP 5 mg/325 mg: take 1-2 tablets orally every 4 hours as needed for pain. Dispense thirty (30). No refill. Understanding of the discharge instructions verbalized by patient and family. Follow-up with: Carson Wiggins MD, [facility], [phone], [facility], [address] [place] [address].[address], [address] Follow up. Call for the next available appointment. Reason for referral: Follow up ER visit for high blood pressure. Call first thing tomorrow morning. (Electronically signed by Katelynn Nuno MD 03/30/2017 18:31)
--- NOTE | 2017-03-18 04:02 | ED NURSING NOTES ---
Clinical Report - Nurses [facility] [address] [place] [address] 03/17/2017 23:08 Patient: ELROY BAKER TRIAGE Triage time 23:14 Mar 17 2017. Chief Complaint: HEADACHE and (pt c/on headache x 2 days, pt with hx of migraines, however "this is different, it's pressure" , yesterday pt c/o cp, with left arm pain x 2-3 weeks). Alert. No acute distress. SEPSIS SCREEN: Sepsis Screen. Negative (no infection suspected/documented). EDUARD COMA SCORE: Rosalia Coma Scale: 15- eyes open spontaneously (4); best verbal response- oriented x 4 (5); best motor response- obeys commands (6). --23:22 Jie Herrera R.N. 23:14 03/17/17. BP: 187/111. HR: 84. RR: 21. O2 saturation: 94%. Pain level now: 03/26. --23:22 Jie Herrera R.N. Weight: 238.1 kg stated. Height/Length: 76 inches Per Patient. BMI: 63.9. --23:21 Jie Herrera R.N. Medications Glipizide Oral 2mg. Lisinopril Oral 40 mg. --23:16 Jie Herrera R.N. MetFORMIN HCl Oral (Tablet 1000 mg). Metoprolol Tartrate Oral 100 mg. Morphine Sulfate ER Beads Oral 60 mg. Nitroglycerin Translingual, as needed. Warfarin Sodium Oral 5 mg. --23:16 Jie Herrera R.N. HydrALAZINE HCl Oral. --23:17 Jie Herrera R.N. Januvia Oral. --23:17 Jie Herrera R.N. Isosorbide Mononitrate Oral. --23:18 Jie Herrera R.N. AmLODIPine Besylate Oral. --23:18 Jie Herrera R.N. Medication/allergy information source: the patient and patient's family. --23:22 Jie Herrera R.N. Allergies Bees. Codeine. Penicillin. --23:16 Jie Herrera R.N. History Arrived by private vehicle. Historian: patient. Accompanied by family. Primary physician (kenn). This started 2 days. Treatment [employer]: Took Tylenol and ibuprofen. PAST MEDICAL HX: Immunizations: up-to-date. SOCIAL HX: Smoker- current status unknown (cigarette). No alcohol use or drug use. No infectious disease exposure. No known contact with a sick individual. ABUSE ASSESSMENT: No report of abuse. SELF HARM ASSESSMENT: A self harm assessment was performed. The patient answered "no" to the question "Do you have thoughts of harming or killing yourself?". NUTRITIONAL RISK ASSESSMENT: The nutritional risk assessment revealed no deficiencies. FALL RISK ASSESSMENT: Fall risk assessment completed. Risk factors identified include patient impairment of mobility. --23:22 Jie Herrera R.N. PROBLEMS: Cardiovascular Risk Factors. Atrial Flutter. Chest Pain. Diabetes Mellitus. Hypertension. Alcohol Intoxication. Syncope. Tetanus Status. Immunizations. Back Pain. --23:17 Jie Herrera R.N. Atrial Fibrillation. --23:24 Jie Herrera R.N. ADDITIONAL SURGERIES: Back Surgery. Tonsillectomy. --23:17 Jie Herrera R.N. Interventions ID and allergy band on patient. --23:22 Jie Herrera R.N. PHYSICAL ASSESSMENT To room via wheelchair. Patient gowned. GENERAL / NEURO / PSYCH: Alert. Oriented X 4. Appears in pain. HEENT: Pupils equal, round and reactive to light. RESPIRATORY: Mild respiratory distress. SKIN: Skin is warm and dry. --23:24 Jie Herrera R.N. NURSING PROGRESS NOTES 23:42 03/17/2017 Site #1 started via IV antecubital space with an 20g angiocath; one attempt. Blood drawn: rainbow set. Labeled in the presence of the patient and sent to the lab. Saline lock flushed with 10 mL saline. --23:47 Jie Herrera R.N. ( discussed with Dr Nuno pain control for pt- vo for dilaudid 2mg ivp and additional 1-2 in 20 minutes if needed.). --23:49 Jie Herrera R.N. 00:44 03/18/2017 Dilaudid (HYDROmorphone HCl PF) IVP 2 mg given over 2 minute(s) via site #1. Allergies verified, confirmed 5 rights and sedative warning given to the patient. IV patency established. IV site checked: no pain, redness, or swelling. IV flushed thoroughly pre- and post-medication administration. IVP given by RN. --00:44 Jojo Abraham R.N. 00:46 03/18/2017 Labetalol IVP 20 mg given over 2 minute(s) via site #1. Allergies verified and confirmed 5 rights. IV patency established. IV site checked: no pain, redness, or swelling. IV flushed thoroughly pre- and post-medication administration. IVP given by RN (bp 177/80). --00:46 Jojo Abraham R.N. GENERAL / NEURO / PSYCH: The patient reports headache that is severe and is described as throbbing. --00:47 Jojo Abraham R.N. 00:30 03/18/17. BP: 177/80 taken on the left arm, while lying. HR: 89 (regular and normal rate). RR: 18 (regular and unlabored). O2 saturation: 97% on room air. Temp: deferred. Pain level now: 04/26. --00:47 Jojo Abraham R.N. Two patient identifiers checked. Call light placed in reach. Side rails up x 2. Bed placed in lowest position. Brakes of bed on. --00:47 Jojo Abraham R.N. 23:52 03/17/2017 Dilaudid (HYDROmorphone HCl PF) IVP 2 mg given. via site #1. Allergies verified, confirmed 5 rights and sedative warning given to the patient and patient's family. IV patency established. IV site checked: no pain, redness, or swelling. IV flushed thoroughly pre- and post-medication administration. IVP given by RN. --01:50 Jie Herrera R.N. ( Patient Reports worsening headache. Provider notified of vitals). --02:32 Nataliya Vallecilloh 02:28 03/18/17. BP: 196/103. HR: 92. RR: 20. O2 saturation: 100% on room air. Pain level now: 03/26. --02:32 Yamilet Vallecillo 02:50 03/18/2017 Dilaudid (HYDROmorphone HCl PF) IVP 2 mg given. via site #1. Allergies verified, confirmed 5 rights and sedative warning given to the patient. IV patency established. IV site checked: no pain, redness, or swelling. IV flushed thoroughly pre- and post-medication administration. IVP given by RN. --02:50 Jie Herrera R.N. 02:56 03/18/17. BP: 202/85. HR: 107. RR: 21. O2 saturation: 97%. Pain level now 03/26. --02:57 Jie Herrera R.N. 03:08 03/18/17. BP: 190/108 taken on the left arm, while lying. HR: 106 (regular and tachycardic). RR: 18 (regular). O2 saturation: 96%. Temp: deferred. Pain level now: 03/26. --03:09 Jojo Abraham R.N. Two patient identifiers checked. Call light placed in reach. Side rails up x 2. Bed placed in lowest position. Brakes of bed on. --03:09 Jojo Abraham R.N. 03:09 03/18/2017 Vasotec IVP 2.5 mg given over 3 minute(s) via site #1. Allergies verified and confirmed 5 rights. IV patency established. IV site checked: no pain, redness, or swelling. IV flushed thoroughly pre- and post-medication administration. IVP given by RN (190/108). --03:10 Jojo Abraham R.N. ( pt diaphoretic, A&Ox4, still c/o pain will continue to monitor. medicated per MD orders). GENERAL / NEURO / PSYCH: The patient reports headache is still present and is currently moderate in severity. Appears in pain. --03:13 Jojo Abraham R.N. 03:48 03/18/2017 Fentanyl IVP 100 mcg given over 2 minute(s) via site #1. Allergies verified, confirmed 5 rights and sedative warning given to the patient. IV patency established. IV site checked: no pain, redness, or swelling. IV flushed thoroughly pre- and post-medication administration. IVP given by RN. --03:50 Jojo Abraham R.N. DISPOSITION / DISCHARGE 04:17 03/18/2017 Site #1 removed upon discharge. Catheter intact. Manual pressure and bandage applied. --04:28 Jojo Abraham R.N. Departure time: 7. Condition at departure: improved and stable. No learning barriers present. Discharge instructions provided and reviewed with the patient. Reviewed medication(s) side effects, precautions, dosing and course information. Prescription(s) given to the patient. Reviewed referral to family practice for followup. Follow up contact number [phone]. Patient verbalized understanding. Written instructions provided in Korean. The patient was discharged home and accompanied by spouse. He left the Emergency Department ambulatory and via private vehicle. Spouse driving. --04:28 Jojo Abraham R.N. 04:23 03/18/17. BP: 195/105 taken on the left arm, while lying. HR: 109 (regular and tachycardic). RR: 24 (regular and unlabored). O2 saturation: 97% on room air. Temp: deferred. Pain level now: 5/10. Additional comments: MD aware and ok with D/C. --04:28 Jooj Abraham R.N. Locked/Released at 03/18/2017 4:36 by Jojo Abraham R.N.
--- NOTE | 2017-03-30 18:31 | ED MED RECONCILIATION SUMMARY ---
Patient: ELROY BAKER Medication Reconciliation Report [facility] VisitID: [id number] [place] [address] 52y, M Registration Date/Time: 03/17/2017 Weight: 238.1 kg Height/Length: 76 in. BMI: 63.9 ALLERGIES: Bees, Codeine, Penicillin The patient's Home Medications are listed below: CONTINUE TAKING THE FOLLOWING MEDICATIONS: AmLODIPine Besylate Oral Glipizide Oral 2mg HydrALAZINE HCl Oral Isosorbide Mononitrate Oral Januvia Oral Lisinopril Oral 40 mg MetFORMIN HCl Oral (1000 mg) Metoprolol Tartrate Oral 100 mg Morphine Sulfate ER Beads Oral 60 mg Nitroglycerin Translingual Warfarin Sodium Oral 5 mg The source(s) of the original Home Medication information: patient's family member patient The following Medications were given to the patient in the Emergency Department: Dilaudid [IVP] IVP 2 mg, administered: 03/18/2017 12:44:00 AM Labetalol [IVP] IVP 20 mg, administered: 03/18/2017 12:46:00 AM Dilaudid [IVP] IVP 2 mg, administered: 03/17/2017 11:52:00 PM Dilaudid [IVP] IVP 2 mg, administered: 03/18/2017 2:50:00 AM Vasotec [IVP] IVP 2.5 mg, administered: 03/18/2017 3:09:00 AM Fentanyl [IVP] IVP 100 mcg, administered: 03/18/2017 3:48:00 AM The following Medications were prescribed to the patient: Oxycodone/APAP 5 mg/325 mg: take 1-2 tablets orally every 4 hours as needed for pain. Dispense thirty (30). No refill. -- Katelynn Nuno MD
--- NOTE | 2017-03-30 18:31 | ED MAR SUMMARY ---
..... Medication Administration Record [facility] [address] [place] [address] Patient: ELROY BAKER Visit ID: [id number] 52y, M Weight: 238.1 kg Height/Length: 76 in BMI: 63.9 ALLERGIES: Bees, Codeine, Penicillin Given 23:52 03/17/2017 Jie Herrera R.N. Medication Administered: DILAUDID [IVP] (HYDROMORPHONE HCL PF), Dose: 2 mg IVP, Site: #1 AC. Medication Ordered: Dilaudid IV 2 mg (HIGH ALERT MEDICATION, NOW). Given 00:44 03/18/2017 Jojo Abraham R.N. Medication Administered: DILAUDID [IVP] (HYDROMORPHONE HCL PF), Dose: 2 mg IVP over 2 minute(s), Site: #1 AC. Medication Ordered: Dilaudid IV 2 mg (HIGH ALERT MEDICATION, NOW). Given 00:46 03/18/2017 Jojo Abraham R.N. Medication Administered: LABETALOL [IVP], Dose: 20 mg IVP over 2 minute(s), Site: #1 AC. Medication Ordered: Labetalol IV 20 mg (HIGH ALERT MEDICATION, NOW). Given 02:50 03/18/2017 Jie Herrera R.N. Medication Administered: DILAUDID [IVP] (HYDROMORPHONE HCL PF), Dose: 2 mg IVP, Site: #1 AC. Medication Ordered: Dilaudid IV 2 mg (HIGH ALERT MEDICATION, NOW). Given 03:09 03/18/2017 Jojo Abraham R.N. Medication Administered: VASOTEC [IVP], Dose: 2.5 mg IVP over 3 minute(s), Site: #1 AC. Medication Ordered: Vasotec IV 2.5 mg (NOW). Given 03:48 03/18/2017 Jojo Abraham R.N. Medication Administered: FENTANYL [IVP], Dose: 100 mcg IVP over 2 minute(s), Site: #1 AC. Medication Ordered: Fentanyl IV 100 mcg (HIGH ALERT MEDICATION, NOW).
--- NOTE | 2017-03-30 18:31 | ED MAR SUMMARY ---
..... Medication Administration Record [facility] [address] [place] [address] Patient: ELROY BAKER Visit ID: [id number] 52y, M Weight: 238.1 kg Height/Length: 76 in BMI: 63.9 ALLERGIES: Bees, Codeine, Penicillin Given 23:52 03/17/2017 Jie Herrera R.N. Medication Administered: DILAUDID [IVP] (HYDROMORPHONE HCL PF), Dose: 2 mg IVP, Site: #1 AC. Medication Ordered: Dilaudid IV 2 mg (HIGH ALERT MEDICATION, NOW). Given 00:44 03/18/2017 Jojo Abraham R.N. Medication Administered: DILAUDID [IVP] (HYDROMORPHONE HCL PF), Dose: 2 mg IVP over 2 minute(s), Site: #1 AC. Medication Ordered: Dilaudid IV 2 mg (HIGH ALERT MEDICATION, NOW). Given 00:46 03/18/2017 Jojo Abraham R.N. Medication Administered: LABETALOL [IVP], Dose: 20 mg IVP over 2 minute(s), Site: #1 AC. Medication Ordered: Labetalol IV 20 mg (HIGH ALERT MEDICATION, NOW). Given 02:50 03/18/2017 Jie Herrera R.N. Medication Administered: DILAUDID [IVP] (HYDROMORPHONE HCL PF), Dose: 2 mg IVP, Site: #1 AC. Medication Ordered: Dilaudid IV 2 mg (HIGH ALERT MEDICATION, NOW). Given 03:09 03/18/2017 Jojo Abraham R.N. Medication Administered: VASOTEC [IVP], Dose: 2.5 mg IVP over 3 minute(s), Site: #1 AC. Medication Ordered: Vasotec IV 2.5 mg (NOW). Given 03:48 03/18/2017 Jojo Abraham R.N. Medication Administered: FENTANYL [IVP], Dose: 100 mcg IVP over 2 minute(s), Site: #1 AC. Medication Ordered: Fentanyl IV 100 mcg (HIGH ALERT MEDICATION, NOW).
--- NOTE | 2017-03-30 18:31 | ED MED RECONCILIATION SUMMARY ---
Patient: ELROY BAKER Medication Reconciliation Report [facility] VisitID: [id number] [place] [address] 52y, M Registration Date/Time: 03/17/2017 Weight: 238.1 kg Height/Length: 76 in. BMI: 63.9 ALLERGIES: Bees, Codeine, Penicillin The patient's Home Medications are listed below: CONTINUE TAKING THE FOLLOWING MEDICATIONS: AmLODIPine Besylate Oral Glipizide Oral 2mg HydrALAZINE HCl Oral Isosorbide Mononitrate Oral Januvia Oral Lisinopril Oral 40 mg MetFORMIN HCl Oral (1000 mg) Metoprolol Tartrate Oral 100 mg Morphine Sulfate ER Beads Oral 60 mg Nitroglycerin Translingual Warfarin Sodium Oral 5 mg The source(s) of the original Home Medication information: patient's family member patient The following Medications were given to the patient in the Emergency Department: Dilaudid [IVP] IVP 2 mg, administered: 03/18/2017 12:44:00 AM Labetalol [IVP] IVP 20 mg, administered: 03/18/2017 12:46:00 AM Dilaudid [IVP] IVP 2 mg, administered: 03/17/2017 11:52:00 PM Dilaudid [IVP] IVP 2 mg, administered: 03/18/2017 2:50:00 AM Vasotec [IVP] IVP 2.5 mg, administered: 03/18/2017 3:09:00 AM Fentanyl [IVP] IVP 100 mcg, administered: 03/18/2017 3:48:00 AM The following Medications were prescribed to the patient: Oxycodone/APAP 5 mg/325 mg: take 1-2 tablets orally every 4 hours as needed for pain. Dispense thirty (30). No refill. -- Katelynn Nuno MD
--- NOTE | 2017-03-30 18:31 | ED DISCHARGE INSTRUCTIONS ---
Patient: ELROY BAKER General Instructions [facility] VisitID: [id number] [place] [address] 52y, M Registration Date/Time: 03/17/2017 Acute migraine and tension headache. Hypertensive headache INSTRUCTIONS Warnings: Further evaluation is necessary. It is very important to follow up with a physician. SEDATIVE MEDICATION: You were given sedative medication during your visit. Do not drive or operate dangerous machinery for 8 hours. GENERAL WARNINGS: Return or contact your physician immediately if your condition worsens or changes unexpectedly, if not improving as expected, or if other problems arise. Your Current Medications: CONTINUE TAKING THE FOLLOWING MEDICATIONS: AmLODIPine Besylate Oral. Glipizide Oral : 2mg. HydrALAZINE HCl Oral. Isosorbide Mononitrate Oral. Januvia Oral. Lisinopril Oral : 40 mg. MetFORMIN HCl Oral : Tablet 1000 mg. Metoprolol Tartrate Oral : 100 mg. Morphine Sulfate ER Beads Oral : 60 mg. Nitroglycerin Translingual : prn. Warfarin Sodium Oral : 5 mg. Prescription Medications: Oxycodone/APAP 5 mg/325 mg: take 1-2 tablets orally every 4 hours as needed for pain. Dispense thirty (30). No refill. Understanding of the discharge instructions verbalized by patient and family. Follow-up with: Carson Wiggins MD, [facility], [phone], [facility], [address] [place] [address] Follow up. Call for the next available appointment. Reason for referral: Follow up ER visit for high blood pressure. Call first thing tomorrow morning. ADDITIONAL INFORMATION Headache [Unspecified] The cause of your headache today is not clear, but it does not appear to be the sign of any serious illness. Under stress, some people tense the muscles of their shoulder, neck and scalp without knowing it. If this condition lasts long enough, a TENSION HEADACHE can occur. A MIGRAINE HEADACHE is caused by changes in blood flow to the brain. A migraine attack may be triggered by emotional stress, hormone changes during the menstrual cycle, oral contraceptives, alcohol use, certain foods containing tyramine, eye strain, weather changes, missing meals, lack of sleep or oversleeping. Other causes of headache include a viral illness with high fever, head injury with concussion, sinus, ear or throat infection, dental pain and TMJ (jaw joint) pain. More serious but less common causes of headache include stroke, brain hemorrhage, brain tumor, meningitis and encephalitis. Home Care: If you were given pain medicine for this headache, do not drive yourself home. Arrange for a ride, instead. When you get home, try to sleep. You should feel much better when you wake up. Apply heat to the back of your neck to relieve neck muscle spasm. Migraine headaches may respond best to an ice pack on the forehead or at the base of the skull. If you are having nausea or vomiting, follow a light diet until your headache is relieved. If you have a migraine type headache, use sunglasses when in the daylight or around bright indoor lighting until symptoms improve. Bright glaring light can worsen this kind of headache. Follow Up with your doctor if the headache is not better within the next 24 hours. If you have frequent headaches you should discuss a treatment plan with your primary care doctor. By being aware of the earliest signs of headache, and starting treatment right away, you may be able to stop the pain yourself. Get Prompt Medical Attention if any of the following occur: Worsening of your head pain or no improvement within 24 hours Repeated vomiting (unable to keep liquids down) Fever of 100.4F (38C) or higher, or as directed by your healthcare provider Stiff neck Extreme drowsiness, confusion or fainting Dizziness, vertigo (dizziness with spinning sensation) Weakness of an arm or leg or one side of the face Difficulty with speech or vision Hypertension, Out Of Control (Established) Your blood pressure was unusually high today. This can occur as a result of missing doses of your blood pressure medicine. Some asthma inhalers, decongestants, diet pills, and street drugs such as cocaine and amphetamine can worsen hypertension. An increase in body weight, increase in salt intake, smoking, and caffeine are other causes. Emotional upset or acute pain can cause a sudden rapid rise in blood pressure which may return to normal after a period of rest. A normal blood pressure is less than 140/90. The first (top) number is the systolic pressure. The second (bottom) number is the diastolic pressure. Hypertension exists when either the top number is 140 or higher, OR the bottom number is 90 or higher on repeated measurements. Home Care: All patients with high blood pressure should do the following to lower their pressure. If you are on blood pressure medicines, then these methods may reduce or eliminate your need for medicines in the future. Begin a weight-loss program if you are overweight. Reduce your salt intake. Avoid high-salt foods (olives, pickles, smoked meats, salted potato chips, etc.). Do not add salt to your food at the table. Use only small amounts of salt when cooking. Begin an exercise program. Discuss with your doctor what type of exercise program would be best for you. It doesnt have to be difficult. Even brisk walking for 20 minutes3 times a week is a good form of exercise. Avoid medicines which contain heart stimulants. This includes many cold and sinus decongestant pills and sprays as well as diet pills. Check the warnings about hypertension on the label. Stimulants such as amphetamine or cocaine could be lethal for someone with hypertension. Never take these. Limit your caffeine intake or switch to decaf. Stop smoking. If you are a long-time smoker, this can be hard. Enroll in a stop-smoking program to improve your chance of success. Talk to your physician about ways to improve your chance of success. Learning how to handle stress better is an important part of any program to lower blood pressure. Learn about relaxation methods such as meditation, yoga, or biofeedback. If medicines were prescribed, take them exactly as directed. Missing doses may cause your blood pressure to get out of control. Consider buying an automatic blood pressure machine (available at many pharmacies). Use this to monitor your blood pressure and report to your doctor. Follow Up: Regular visits to your own doctor for blood pressure checks and medicine adjustment is an important part of your care. Make a follow-up appointment as directed by our staff. Get Prompt Medical Attention if any of the following occur: Chest, arm, shoulder, neck, or upper back pain Shortness of breath Severe headache Throbbing or rushing sound in the ears Nosebleed Extreme drowsiness, confusion, or fainting Dizziness or vertigo (dizziness with spinning sensation) Weakness of an arm or leg or one side of the face Difficulty with speech or vision You have been given the following additional information: Headache, Unspecified Hypertension, Established, Out Of Control (Electronically signed by Katelynn Nuno MD 03/30/2017 18:31)
== END 2017-03-18 04:17 | disposition home or self-care (01) ==
LOC: ED SRH 23:07
DX: G44.209 Tension-type headache, unspecified, not intractable (principal); G43.909 Migraine, unspecified, not intractable, without status migrainosus; I10 Essential (primary) hypertension; I48.91 Unspecified atrial fibrillation; E11.9 Type 2 diabetes mellitus without complications; Z79.899 Other long term (current) drug therapy; Z79.84 Long term (current) use of oral hypoglycemic drugs; Z79.01 Long term (current) use of anticoagulants
CPT/HCPCS: 90100; 90616; 92610; 92720; 95059

== ENCOUNTER 2017-03-20 20:46 | Inpatient (IN) | payer OTHER ==
[~2017-03-20] VITALS: Ht 193 cm; Wt 238.0 kg
--- NOTE | 2017-03-20 22:07 | DIAGNOSTIC IMAGING REPORT ---
PROCEDURE: XR CHEST 1 VIEW INDICATION: SOB TECHNIQUE: Portable AP view 09:29 p.m. COMPARISON: Chest x-ray 12/17/2016. FINDINGS: Left basilar scarring. Heart and mediastinum are normal. Thorax is normal. IMPRESSION: 1. No acute changes 2. Left basilar scarring.
--- NOTE | 2017-03-20 22:20 | ED CLINICAL REPORT ---
Clinical Report - Physicians/Mid Levels [facility] [address] [place] [address] 03/20/2017 20:46 Patient: ELROY BAKER Time Seen: 21:05. Arrived- By private vehicle. Historian- patient and family. HISTORY OF PRESENT ILLNESS Chief Complaint: DYSPNEA. This started about 2 days ago and is still present. It was gradual in onset and has been waxing/waning. The dyspnea is described as moderate and is worsened by walking, is improved by rest and is improved with oxygen. The patient has had a cough, chest discomfort, dyspnea on exertion and dizziness. No sputum production, sweating episodes, wheezing, calf pain or foot swelling. Similar symptoms previously: Recent medical care: The patient was seen recently at this facility in the emergency department and a clinic. ( Pt was taking ntg but stopped due to headaches, now with increasing SOB). REVIEW OF SYSTEMS The patient has had joint pain, but not had weight loss. No eye irritation, sore throat, nasal discharge, sinus drainage or vomiting. No abdominal pain, diarrhea, black stools, bloody stools or headache. No fainting episodes, blurred vision, difficulty with urination, excessive urination or skin rash. No enlarged lymph nodes. All systems otherwise negative, except as recorded above. PAST HISTORY PCP: Dr Wiggins PROBLEMS: Hypertensive Headache. Headache. Atrial Fibrillation. Atrial Flutter. Chest Pain. Diabetes Mellitus. Hypertension. Alcohol Intoxication. Syncope. Back Pain Morbid Obesity SURGERY HX: Tonsillectomy. Back Left thumb. Medications: Glipizide Oral 2mg. HydrALAZINE HCl Oral. Januvia Oral. Lisinopril Oral 40 mg. MetFORMIN HCl Oral (Tablet 1000 mg). Metoprolol Tartrate Oral 100 mg. Morphine Sulfate ER Beads Oral 60 mg. Warfarin Sodium Oral 5 mg. AmLODIPine Besylate Oral. Allergies: Bees. Codeine. Penicillin. SOCIAL HISTORY Never smoker. No alcohol use or drug use. Residence: [place]. ADDITIONAL NOTES The nursing notes have been reviewed. PHYSICAL EXAM Vital Signs: 03/20/2017 20:51 BP: 158/82. HR: 116. RR: 28. O2 saturation: 95%. Temp: 97.6 F. Pain level now: 10/27. Appearance: Alert. Patient in moderate distress. Eyes: Eyes normal inspection. No pale conjunctivae or scleral icterus. ENT: Pharynx normal. Uvula midline. No nasal discharge or pharyngeal erythema. The mucous membranes are not dry. Neck: Normal inspection. No jugular venous distention. Neck supple. CVS: Tachycardia. Heart sounds normal. Respiratory: No respiratory distress. Decreased air movement. No wheezes, stridor, rales or chest wall tenderness. Abdomen: Soft and nontender. Severely obese. Back: Normal inspection. Skin: Skin warm and dry. Normal skin color. Normal skin turgor. Extremities: Extremities exhibit normal ROM. No calf tenderness. No lower extremity edema. Neuro: Oriented X 3. No motor deficit. LABS, X-RAYS, AND EKG EKG: EKG time: (20:57). Atrial flutter with 2 to 1 conduction (ventricular rate 120). Non-specific ST segment / T wave abnormalities. The study has been interpreted contemporaneously by me. The EKG appears to be a good tracing. Rhythm Strip #1: Atrial flutter (ventricular rate 115 - 150). Regular rhythm. Narrow QRS complexes. No ectopy. Chest X-ray: No acute disease. Views: AP (portable). Technique: poor inspiration. The X-rays were interpreted contemporaneously by me. A comparison with prior films reveals that the findings are unchanged. Laboratory Tests: CBC w Diff: (DEONTE: 03/20/2017 21:03) ( MsgRcvd 03/20/2017 21:24) Final results Test Result Flag Units (Reference) WHITE BLOOD COUNT 12.3 H K/uL (4.5-11.5) RED BLOOD COUNT 5.55 M/uL (4.50-5.90) HEMOGLOBIN 16.5 gm/dL (13.5-17.5) HEMATOCRIT 49.3 % (41.0-53.0) MEAN CELL VOLUME 89 fL (80-100) MEAN CORPUSCULAR HGB 30 pg (26-34) MEAN CORPUSCULAR HGB CONC 33 g/dL (31-37) RED CELL DISTRIBUTION WIDTH 13.5 % (11.6-14.8) PLATELET COUNT 228 K/uL (150-400) NEUTROPHIL % 76.0 H % (50-75) LYMPH % 17.7 L % (25-40) MONO % 4.5 % (3-14) EOSINOPHIL % 1.3 % (0-4) BASOPHIL % 0.5 % (0-2) PT with INR: (DEONTE: 03/20/2017 21:03) ( [facility] 03/20/2017 21:22) Final results Test Result Flag Units (Reference) INR 2.3 H (0.8-1.2) Low Intensity Therapy: INR 1.5-2.0 PT range 18.5-23.1Mod.Intensity Therapy: INR 2.0-3.0 PT range 23.1-31.5High Intensity Therapy: INR 2.5-3.5 PT range 27.4-35.5High Intensity Therapy 2: INR 3.0-4.0 PT range 31.5-39.3 BNP: (DEONTE: 03/20/2017 21:03) ( [facility] 03/20/2017 22:10) Final results Test Result Flag Units (Reference) B-TYPE NATRIURETIC PEPTIDE 116 H pg/ml (5-100) CMP: (DEONTE: 03/20/2017 21:03) ( [facility] 03/20/2017 22:01) Final results Test Result Flag Units (Reference) GLUCOSE 273 H mg/dL (70-110) BUN 15 mg/dL (7-18) CREATININE 1.0 mg/dL (0.6-1.3) Estimated GFR >60 mL/min Estimated GFR- >60 mL/min Note: Persistent reduction over 3 months in eGFR<60 mL/min/1.73 m2 defines CKD. Patients with eGFR values>=60 mL/min/1.73 m2 may also have CKD if evidence ofpersistent proteinuria. Additional information may be foundat www.kidney.org. SODIUM 139 mmol/L (136-145) POTASSIUM 4.0 mmol/L (3.5-5.1) CHLORIDE 101 mmol/L (98-107) CARBON DIOXIDE 22 mmol/L (21-32) CALCIUM 9.0 mg/dL (8.5-10.1) TOTAL PROTEIN 8.0 g/dL (6.4-8.2) ALBUMIN 3.5 g/dL (3.3-5.0) BILIRUBIN, TOTAL 0.3 mg/dL (0.0-1.0) ALKALINE PHOSPHATASE 110 U/L (46-116) AST (SGOT) 20 U/L (15-37) ALT (SGPT) 38 U/L (12-78) MAGNESIUM 1.7 L mg/dL (1.8-2.4) TROPONIN I <0.05 ng/mL (0.00-1.5) TROPONIN REFERENCE RANGE:<0.1 NEGATIVE0.1-1.5 INDETERMINANT>1.5 POSITIVE . Pulse Oximetry: 03/20/2017 20:51 O2 saturation: 95%. (FIO2 - room air). Interpretation: normal. PROGRESS AND PROCEDURES Course of Care: Nitroglycerin 1.5 inches paste inches. Nitroglycerin 0.4 mg tab x1 SL given. Normal Saline 500 mL IVPB given. Zofran 4 mg IVP given. Dilaudid 0.5 mg IVP given. 22:21 03/20/17. Patient is stable. Physical exam findings are improved. Symptoms better. Discussed case with hospitalist, (Frances - in ED 22:47). Reviewed test results. Agreed upon treatment plan. Call placed to patient's primary care provider Feliciano call placed 22:19 call returned 22:22. Patient/family counseled. Additional history sought (from family). Old ED records reviewed. Observation orders written. Disposition: Observation in Acute Care. Condition: stable and improved. CLINICAL IMPRESSION Acute dyspnea. Acute moderate left ventricular congestive heart failure. Acute moderate left ventricular congestive heart failure. Chronic atrial flutter. The patient has one or more high risk factors and/or two or more moderate risk factors for thromboembolism. The patient is prescribed warfarin or another FDA approved anticoagulant. Morbid obesity (BMI >=40) BMI 64 due to excess calories. Possible Obesity Hyperventilation Syndrome. (Electronically signed by Olivier Sagastume DO 03/21/2017 0:18)
--- NOTE | 2017-03-20 22:20 | ED ORDER SUMMARY ---
..... Patient: ELROY BAKER OrderSheet [facility] VisitID: [id number] [place] [address] 52y, M Registration Date/Time: 03/20/2017 ORDER SHEET Weight: 238.1 kg (stated) Allergies: Bees, Codeine, Penicillin GENERAL ORDERS: Chest 1V Urgent (21:03 03/20/2017 Ayana Blanc) (Ack 21:17 Timothy) (21:26 WONGanders R.N.) [employer] (Continuous) (SOB) (21:04 03/20/2017 Ayana Blanc) (21:15 Timothy) CBC w Diff Urgent (21:04 03/20/2017 Ayana Blanc) (Ack 21:17 [place]) CMP Urgent (21:04 03/20/2017 Ayana Blanc) (Ack 21:17 Timothy) UA-Culture if indicated Urgent (21:04 03/20/2017 Ayana Blanc) (Ack 21:17 [place]) PT with INR Urgent (21:04 03/20/2017 Ayana Blanc) (Ack 21:17 Timothy) Troponin-I Urgent (21:04 03/20/2017 Ayana Blanc) (Ack 21:17 RKaruga) TSH Urgent (21:04 03/20/2017 Ayana Blanc) (Ack 21:17 NAGELaruga) Magnesium Urgent (21:04 03/20/2017 Ayana Blanc) (Ack 21:17 Timothy) EKG - ER Stat (21:04 03/20/2017 Ayana Blanc) (21:14 RKaruga) Pulse oximeter (21:04 03/20/2017 Ayana Blanc) (21:15 RKaruga) BNP Urgent (21:29 03/20/2017 [facility] (Ack 21:35 RKaruga) Call (Place call to): (Dr Wiggins) (22:18 03/20/2017 PHctAdStackson DO) (22:22 RKaruga) MEDICATION ORDERS: NitroGLYCERIN Paste Topical 1.5 in. (NOW, to CW) (22:12 03/20/2017 [facility]) (22:28 SSambou R.N.) NitroGLYCERIN SL 0.4 mg (NOW) (22:12 03/20/2017 [facility]) (22:28 SSambou R.N.) Lovenox Subcut 120 mg (HIGH ALERT MEDICATION, NOW) (22:13 03/20/2017 [facility]) (22:30 SSambou R.N.) IV FLUIDS: IV Saline Lock (21:04 03/20/2017 Ayana Blanc) (21:20 SSambou R.N.) Dilaudid IV 0.5 mg (HIGH ALERT MEDICATION, NOW) (22:12 03/20/2017 [facility]) (22:29 SSambou R.N.) Zofran IV 4 mg (NOW) (22:13 03/20/2017 [facility]) (22:29 SSambou R.N.) ORDER SHEET NOTES: [Electronically signed by Sheriff Franny Rea (23:55 03/20/2017)] [Electronically signed by Olivier Sagastume DO (00:18 03/21/2017)] [Electronically locked/signed by Sheriff Franny Rea (23:55 03/20/2017)]
--- NOTE | 2017-03-20 22:20 | ED ORDER SUMMARY ---
..... Patient: ELROY BAKER OrderSheet [facility] VisitID: [id number] [place] [address] 52y, M Registration Date/Time: 03/20/2017 ORDER SHEET Weight: 238.1 kg (stated) Allergies: Bees, Codeine, Penicillin GENERAL ORDERS: Chest 1V Urgent (21:03 03/20/2017 Ayana Blanc) (Ack 21:17 Timothy) (21:26 WONGanders R.N.) Director Biostatistics (Continuous) (SOB) (21:04 03/20/2017 Ayana Blanc) (21:15 Timothy) CBC w Diff Urgent (21:04 03/20/2017 Ayana Blanc) (Ack 21:17 [place]) CMP Urgent (21:04 03/20/2017 Ayana Blanc) (Ack 21:17 Timothy) UA-Culture if indicated Urgent (21:04 03/20/2017 Ayana Blanc) (Ack 21:17 [place]) PT with INR Urgent (21:04 03/20/2017 Ayana Blanc) (Ack 21:17 Timothy) Troponin-I Urgent (21:04 03/20/2017 Ayana Blanc) (Ack 21:17 RKaruga) TSH Urgent (21:04 03/20/2017 Ayana Blanc) (Ack 21:17 ANGELaruga) Magnesium Urgent (21:04 03/20/2017 Ayana Blanc) (Ack 21:17 Timothy) EKG - ER Stat (21:04 03/20/2017 Ayana Blanc) (21:14 RKaruga) Pulse oximeter (21:04 03/20/2017 Ayana Blanc) (21:15 RKaruga) BNP Urgent (21:29 03/20/2017 [facility]) (Ack 21:35 RKaruga) Call (Place call to): (Dr Wiggins) (22:18 03/20/2017 PHnmE-Houseson DO) (22:22 RKaruga) MEDICATION ORDERS: NitroGLYCERIN Paste Topical 1.5 in. (NOW, to CW) (22:12 03/20/2017 [facility]) (22:28 SSambou R.N.) NitroGLYCERIN SL 0.4 mg (NOW) (22:12 03/20/2017 [facility]) (22:28 SSambou R.N.) Lovenox Subcut 120 mg (HIGH ALERT MEDICATION, NOW) (22:13 03/20/2017 [facility]) (22:30 SSambou R.N.) IV FLUIDS: IV Saline Lock (21:04 03/20/2017 Ayana Blanc) (21:20 SSambou R.N.) Dilaudid IV 0.5 mg (HIGH ALERT MEDICATION, NOW) (22:12 03/20/2017 [facility]) (22:29 SSambou R.N.) Zofran IV 4 mg (NOW) (22:13 03/20/2017 [facility]) (22:29 SSambou R.N.) ORDER SHEET NOTES: [Electronically signed by Sheriff Franny Rea (23:55 03/20/2017)] [Electronically signed by Olivier Sagastume DO (00:18 03/21/2017)] [Electronically locked/signed by Sheriff Franny Rea (23:55 03/20/2017)]
--- NOTE | 2017-03-20 22:20 | ED NURSING NOTES ---
Clinical Report - Nurses [facility] [place] [address] 03/20/2017 20:46 Patient: ELROY BAKER TRIAGE Triage time 20:51. Acuity: LEVEL 2. Chief Complaint: SHORTNESS OF BREATH and DIFFICULTY BREATHING. --20:57 Sheriff Rea R.N. 20:51 03/20/17. BP: 158/82. HR: 116. RR: 28. O2 saturation: 95%. Temp: 97.6 F. Pain level now: 10/27. --20:57 Sheriff Rea R.N. Weight: 238.1 kg stated. Height/Length: 76 inches Per Patient. BMI: 63.9. --20:51 Sheriff Rea R.N. Medications AmLODIPine Besylate Oral. --20:52 Sheriff Rea R.N. Glipizide Oral 2mg. HydrALAZINE HCl Oral. Januvia Oral. Lisinopril Oral 40 mg. MetFORMIN HCl Oral (Tablet 1000 mg). Metoprolol Tartrate Oral 100 mg. Morphine Sulfate ER Beads Oral 60 mg. Warfarin Sodium Oral 5 mg. --20:52 Sheriff Rea R.N. Allergies Bees. Codeine. Penicillin. --20:52 Sheriff Rea R.N. History Arrived by private vehicle. Historian: patient. Accompanied by family. Onset. (2 days ago). ( Seen here on 03/17/17 for headache.). SURGERY HX: Tonsillectomy. ( Back Left thumb). SOCIAL HX: Never smoker. No alcohol use or drug use. FALL RISK ASSESSMENT: Fall risk assessment completed. No fall risk identified. NUTRITIONAL RISK ASSESSMENT: The nutritional risk assessment revealed no deficiencies. FUNCTIONAL ASSESSMENT: Functional assessment: no impairments noted. LEARNING NEEDS ASSESSMENT: The learning needs assessment revealed no barriers. SKIN INTEGRITY ASSESSMENT: Skin integrity risk assessment completed. No skin integrity risk identified. --20:57 Sheriff Rea R.N. PROBLEMS: Hypertensive Headache. Headache. Atrial Fibrillation. Cardiovascular Risk Factors. Atrial Flutter. Chest Pain. Diabetes Mellitus. Hypertension. Alcohol Intoxication. Syncope. Tetanus Status. Immunizations. Back Pain. --20:53 Sheriff Rea R.N. PHYSICAL ASSESSMENT To room via wheelchair. GENERAL / NEURO / PSYCH: Alert. Oriented X 4. Appears in distress. HEENT: Mucous membranes are pink. RESPIRATORY: No respiratory distress. Respirations not labored. CVS: Capillary refill less than 2 seconds. SKIN: Skin is warm and dry. --20:57 Sheriff Rea R.N. NURSING PROGRESS NOTES Head of bed elevated. Two patient identifiers checked. Call light placed in reach. Side rails up x 2. Bed placed in lowest position. Brakes of bed on. --20:58 Sheriff Rea R.N. EKG time: (20:57). EKG was performed by a nasir and shown to the ED physician. --21:02 Rudy Li 21:05 03/20/2017 Site #1 started via IV in the left antecubital space with an 18g angiocath, with aseptic technique and good blood return; one attempt. Blood drawn: rainbow set. Labeled in the presence of the patient and sent to the lab. Saline lock flushed with 10 mL saline. --21:20 Sheriff Rea R.N. 22:03/20/2017 NITROGLYCERIN PASTE Topical Paste 1.5 inch. Applied to the right chest. Allergies verified and confirmed 5 rights. --22:28 Sheriff Rea R.N. 22:28 03/20/2017 Nitroglycerin SL Tablets 0.4 mg given. Allergies verified and confirmed 5 rights. --22:28 Sheriff Rea R.N. 22:29 03/20/2017 Dilaudid (HYDROmorphone HCl PF) IVP 0.5 mg given over 1 minute(s) via site #1. Allergies verified, confirmed 5 rights and sedative warning given to the patient. IV patency established. IV site checked: no pain, redness, or swelling. IV flushed thoroughly pre- and post-medication administration. IVP given by RN. --22:29 Sheriff Rea R.N. 22:29 03/20/2017 Zofran (Ondansetron HCl) IVP 4 mg given over 1 minute(s) via site #1. Allergies verified and confirmed 5 rights. IV patency established. IV site checked: no pain, redness, or swelling. IV flushed thoroughly pre- and post-medication administration. IVP given by RN. --22:29 Sheriff Rea R.N. 22:30 03/20/2017 Lovenox (Enoxaparin Sodium) Subcutaneous 120 mg given. Given in the right abdomen. Allergies verified and confirmed 5 rights. --22:30 Sheriff Rea R.N. 22:31 03/20/17. BP: 122/78. HR: 111. RR: 20. O2 saturation: 93%. Temp: 98.6 F. --22:31 Sheriff Rea R.N. DISPOSITION / DISCHARGE Admitted (2345 PM). Transported via stretcher by tech and nurse with IV and O2. Report was given to a nurse via a phone call. Report included patient's care, treatment, medications, reviewed medication reconcilliation, and condition (including any recent changes or anticipated changes). All questions were answered. Report was acknowledged. Patient's personal items include: shirt, pants, socks and shoes; items were placed in belongings bag, given to the patient and transported with the patient. --23:55 Sheriff Rea R.N. Locked/Released at 03/20/2017 23:55 by Sheriff Rea R.N.
--- NOTE | 2017-03-20 22:20 | ED CLINICAL REPORT ---
Clinical Report - Physicians/Mid Levels [facility] [address] [place] [address] 03/20/2017 20:46 Patient: ELROY BAKER Time Seen: 21:05. Arrived- By private vehicle. Historian- patient and family. HISTORY OF PRESENT ILLNESS Chief Complaint: DYSPNEA. This started about 2 days ago and is still present. It was gradual in onset and has been waxing/waning. The dyspnea is described as moderate and is worsened by walking, is improved by rest and is improved with oxygen. The patient has had a cough, chest discomfort, dyspnea on exertion and dizziness. No sputum production, sweating episodes, wheezing, calf pain or foot swelling. Similar symptoms previously: Recent medical care: The patient was seen recently at this facility in the emergency department and a clinic. ( Pt was taking ntg but stopped due to headaches, now with increasing SOB). REVIEW OF SYSTEMS The patient has had joint pain, but not had weight loss. No eye irritation, sore throat, nasal discharge, sinus drainage or vomiting. No abdominal pain, diarrhea, black stools, bloody stools or headache. No fainting episodes, blurred vision, difficulty with urination, excessive urination or skin rash. No enlarged lymph nodes. All systems otherwise negative, except as recorded above. PAST HISTORY PCP: Dr Wiggins PROBLEMS: Hypertensive Headache. Headache. Atrial Fibrillation. Atrial Flutter. Chest Pain. Diabetes Mellitus. Hypertension. Alcohol Intoxication. Syncope. Back Pain Morbid Obesity SURGERY HX: Tonsillectomy. Back Left thumb. Medications: Glipizide Oral 2mg. HydrALAZINE HCl Oral. Januvia Oral. Lisinopril Oral 40 mg. MetFORMIN HCl Oral (Tablet 1000 mg). Metoprolol Tartrate Oral 100 mg. Morphine Sulfate ER Beads Oral 60 mg. Warfarin Sodium Oral 5 mg. AmLODIPine Besylate Oral. Allergies: Bees. Codeine. Penicillin. SOCIAL HISTORY Never smoker. No alcohol use or drug use. Residence: [place]. ADDITIONAL NOTES The nursing notes have been reviewed. PHYSICAL EXAM Vital Signs: 03/20/2017 20:51 BP: 158/82. HR: 116. RR: 28. O2 saturation: 95%. Temp: 97.6 F. Pain level now: 10/27. Appearance: Alert. Patient in moderate distress. Eyes: Eyes normal inspection. No pale conjunctivae or scleral icterus. ENT: Pharynx normal. Uvula midline. No nasal discharge or pharyngeal erythema. The mucous membranes are not dry. Neck: Normal inspection. No jugular venous distention. Neck supple. CVS: Tachycardia. Heart sounds normal. Respiratory: No respiratory distress. Decreased air movement. No wheezes, stridor, rales or chest wall tenderness. Abdomen: Soft and nontender. Severely obese. Back: Normal inspection. Skin: Skin warm and dry. Normal skin color. Normal skin turgor. Extremities: Extremities exhibit normal ROM. No calf tenderness. No lower extremity edema. Neuro: Oriented X 3. No motor deficit. LABS, X-RAYS, AND EKG EKG: EKG time: (20:57). Atrial flutter with 2 to 1 conduction (ventricular rate 120). Non-specific ST segment / T wave abnormalities. The study has been interpreted contemporaneously by me. The EKG appears to be a good tracing. Rhythm Strip #1: Atrial flutter (ventricular rate 115 - 150). Regular rhythm. Narrow QRS complexes. No ectopy. Chest X-ray: No acute disease. Views: AP (portable). Technique: poor inspiration. The X-rays were interpreted contemporaneously by me. A comparison with prior films reveals that the findings are unchanged. Laboratory Tests: CBC w Diff: (DEONTE: 03/20/2017 21:03) ( MsgRcvd 03/20/2017 21:24) Final results Test Result Flag Units (Reference) WHITE BLOOD COUNT 12.3 H K/uL (4.5-11.5) RED BLOOD COUNT 5.55 M/uL (4.50-5.90) HEMOGLOBIN 16.5 gm/dL (13.5-17.5) HEMATOCRIT 49.3 % (41.0-53.0) MEAN CELL VOLUME 89 fL (80-100) MEAN CORPUSCULAR HGB 30 pg (26-34) MEAN CORPUSCULAR HGB CONC 33 g/dL (31-37) RED CELL DISTRIBUTION WIDTH 13.5 % (11.6-14.8) PLATELET COUNT 228 K/uL (150-400) NEUTROPHIL % 76.0 H % (50-75) LYMPH % 17.7 L % (25-40) MONO % 4.5 % (3-14) EOSINOPHIL % 1.3 % (0-4) BASOPHIL % 0.5 % (0-2) PT with INR: (DEONTE: 03/20/2017 21:03) ( [employer] 03/20/2017 21:22) Final results Test Result Flag Units (Reference) INR 2.3 H (0.8-1.2) Low Intensity Therapy: INR 1.5-2.0 PT range 18.5-23.1Mod.Intensity Therapy: INR 2.0-3.0 PT range 23.1-31.5High Intensity Therapy: INR 2.5-3.5 PT range 27.4-35.5High Intensity Therapy 2: INR 3.0-4.0 PT range 31.5-39.3 BNP: (DEONTE: 03/20/2017 21:03) ( [employer] [facility] 03/20/2017 22:10) Final results Test Result Flag Units (Reference) B-TYPE NATRIURETIC PEPTIDE 116 H pg/ml (5-100) CMP: (DEONTE: 03/20/2017 21:03) ( [employer] 03/20/2017 22:01) Final results Test Result Flag Units (Reference) GLUCOSE 273 H mg/dL (70-110) BUN 15 mg/dL (7-18) CREATININE 1.0 mg/dL (0.6-1.3) Estimated GFR >60 mL/min Estimated GFR- >60 mL/min Note: Persistent reduction over 3 months in eGFR<60 mL/min/1.73 m2 defines CKD. Patients with eGFR values>=60 mL/min/1.73 m2 may also have CKD if evidence ofpersistent proteinuria. Additional information may be foundat www.kidney.org. SODIUM 139 mmol/L (136-145) POTASSIUM 4.0 mmol/L (3.5-5.1) CHLORIDE 101 mmol/L (98-107) CARBON DIOXIDE 22 mmol/L (21-32) CALCIUM 9.0 mg/dL (8.5-10.1) TOTAL PROTEIN 8.0 g/dL (6.4-8.2) ALBUMIN 3.5 g/dL (3.3-5.0) BILIRUBIN, TOTAL 0.3 mg/dL (0.0-1.0) ALKALINE PHOSPHATASE 110 U/L (46-116) AST (SGOT) 20 U/L (15-37) ALT (SGPT) 38 U/L (12-78) MAGNESIUM 1.7 L mg/dL (1.8-2.4) TROPONIN I <0.05 ng/mL (0.00-1.5) TROPONIN REFERENCE RANGE:<0.1 NEGATIVE0.1-1.5 INDETERMINANT>1.5 POSITIVE . Pulse Oximetry: 03/20/2017 20:51 O2 saturation: 95%. (FIO2 - room air). Interpretation: normal. PROGRESS AND PROCEDURES Course of Care: Nitroglycerin 1.5 inches paste inches. Nitroglycerin 0.4 mg tab x1 SL given. Normal Saline 500 mL IVPB given. Zofran 4 mg IVP given. Dilaudid 0.5 mg IVP given. 22:21 03/20/17. Patient is stable. Physical exam findings are improved. Symptoms better. Discussed case with hospitalist, (Frances - in ED 22:47). Reviewed test results. Agreed upon treatment plan. Call placed to patient's primary care provider Feliciano call placed 22:19 call returned 22:22. Patient/family counseled. Additional history sought (from family). Old ED records reviewed. Observation orders written. Disposition: Observation in Acute Care. Condition: stable and improved. CLINICAL IMPRESSION Acute dyspnea. Acute moderate left ventricular congestive heart failure. Acute moderate left ventricular congestive heart failure. Chronic atrial flutter. The patient has one or more high risk factors and/or two or more moderate risk factors for thromboembolism. The patient is prescribed warfarin or another FDA approved anticoagulant. Morbid obesity (BMI >=40) BMI 64 due to excess calories. Possible Obesity Hyperventilation Syndrome. (Electronically signed by Olivier Sagastume DO 03/21/2017 0:18)
[2017-03-20 23:51] VITALS: BP 156/110
--- NOTE | 2017-03-20 23:52 | History & Physical Report ---
History Chief Complaint Dyspnea History of Present Illness This is a 52-year-old white male who developed shortness of breath started 2 days ago and progressively became worse to the point that patient was not able to sleep so came to emergency for further evaluation. The patient also had a headache which was attributed to the maxilla that he was taking no chest pain. But had the palpitations no cough no sputum no fever but chills patient also had sweats no dizziness Patient History 1. Atrial flutter with rapid ventricular response 2. CHF (congestive heart failure) 3. DM (diabetes mellitus) 4. HTN (hypertension) 5. Previous back surgery Social History Patient is single and has 3 kids lives with his daughter no history of smoking or alcohol or drug abuse Family History Relation not specified for: Diabetes Heart Disease Hypertension Medications and Allergies Medications Home medications: Amlodipine 5 mg daily. Glipizide 5 mg twice a day. Hydralazine 25 mg 3 times a day. Januvia 300 mg daily. Lisinopril 40 mg daily. Metformin thousand milligrams twice a day. Morphine sulfate 60 mg twice a day. Warfarin 5 mg daily Current Medications Sig/Annette Start time Last Medication Dose Route Stop Time Status Admin Warfarin Sodium 5 MG DAILY@1400 03/21 1400 AC PO Amlodipine Besylate 5 MG DAILY 03/21 900 AC PO Famotidine/Sodium 50 ML Q12HR 03/21 900 AC Chloride IV Furosemide 40 MG BID 03/21 900 UNV IV Glipizide 5 MG BID 03/21 900 AC PO Lisinopril 40 MG DAILY 03/21 900 AC PO Metformin HCl 1,000 MG BID 03/21 900 AC PO Metoprolol Tartrate 100 MG BID 03/21 900 AC PO Morphine Sulfate 60 MG BID 03/21 900 AC PO Hydralazine HCl 25 MG QID 03/21 600 AC PO Al Hydrox/Mg Hydrox/ 15 ML Q1H PRN 03/20 2315 AC Simethicone PO Atropine Sulfate 0.5 MG Q3MIN PRN 03/20 2315 AC IV Docusate Sodium 250 MG BID PRN 03/20 2315 AC PO Lidocaine HCl See Dose ONCE PRN 03/20 2315 AC Insts (1) IV Magnesium Hydroxide 10 ML DAILY PRN 03/20 2315 AC PO Morphine Sulfate 2 MG Q3M PRN 03/20 2315 AC IV Nitroglycerin 0.4 MG Q5M PRN 03/20 2315 AC SL Dose Instructions: (1)Lidocaine HCl: 1.5 MG/KG Allergies Coded Allergies: Codeine (03/20/17) Penicillin G (03/20/17) Review of Systems Other Patient has been losing weight recently, also complains of poor vision, no difficulty with hearing, no congestion or cough or sore throat but runny nose, no nausea no vomiting no indigestion abdominal pain but some constipation, no dysuria or frequency or incontinence, no arthralgia or myalgia, numbness in the legs no localized weakness no syncope and no dizziness. Physical Exam General Appearance Alert, Oriented X3, Mild distress HEENT Normal exam Lungs Clear to auscultation Neck Supple, No JVD, No thyromegaly, 2+ carotid pulse wo bruit Cardiovascular Regular rate and rhythm, Normal S1 and S2, No murmurs, gallops, rubs Abdomen Normal bowel sounds, Soft, No tenderness Extremities No cyanosis (1+ edema), Normal pulses, No tenderness Skin No Rashes, No Significant Lesions Neurological Normal speech, Normal tone, Reflexes 2+ and equal, Cranial nerves intact, Strength 5/5 x4 ext's Psych/Mental Status Mental status normal, Mood normal LAB Results Laboratory Tests 03/20 03/20 2103 2103 Chemistry Plasma Sodium (136 - 145 mmol/L) 139 Plasma Potassium (3.5 - 5.1 mmol/L) 4.0 Plasma Chloride (98 - 107 mmol/L) 101 CO2 (Enzymatic) (21 - 32 mmol/L) 22 BUN (7 - 18 mg/dL) 15 Creatinine (0.6 - 1.3 mg/dL) 1.0 Est GFR ( Amer) (mL/min) >60 Est GFR (Non-Af Amer) (mL/min) >60 Glucose (70 - 110 mg/dL) 273 Plasma Calcium (8.5 - 10.1 mg/dL) 9.0 Plasma Magnesium (1.8 - 2.4 mg/dL) 1.7 Total Bilirubin (0.0 - 1.0 mg/dL) 0.3 AST (15 - 37 U/L) 20 ALT (12 - 78 U/L) 38 Alkaline Phosphatase (46 - 116 U/L) 110 Troponin (0.00 - 1.5 ng/mL) <0.05 B-Natriuretic Peptide (5 - 100 pg/ml) 116 Total Protein (6.4 - 8.2 g/dL) 8.0 Albumin (3.3 - 5.0 g/dL) 3.5 TSH 3rd Generation (0.34 - 3.74 uIU/mL) 2.115 Coagulation INR (0.8 - 1.2) 2.3 Hematology WBC (4.5 - 11.5 K/uL) 12.3 RBC (4.50 - 5.90 M/uL) 5.55 Hgb (13.5 - 17.5 gm/dL) 16.5 Hct (41.0 - 53.0 %) 49.3 MCV (80 - 100 fL) 89 MCH (26 - 34 pg) 30 RDW (11.6 - 14.8 %) 13.5 Neut % (Auto) (50 - 75 %) 76.0 Lymph % (Auto) (25 - 40 %) 17.7 [place] % (Auto) (3 - 14 %) 4.5 Eos % (Auto) (0 - 4 %) 1.3 Baso % (Auto) (0 - 2 %) 0.5 Plt Count, EDTA (150 - 400 K/uL) 228 PUBS MCHC (31 - 37 g/dL) 33 Assessment and Plan Problem List 1. Acute exacerbation of CHF (congestive heart failure) Plan Patient had a stopped taking his diuretics we will start patient on Lasix 40 mg twice a day order echocardiogram and cardiac enzymes will monitor input and output and daily weight and continue outpatient medications 2. Atrial flutter with rapid ventricular response Plan Rate became under control in emergency we will continue outpatient medications and monitor INR 3. DM (diabetes mellitus) Plan We will monitor her blood sugar and continue outpatient medications and regular insulin sliding scale 4. HTN (hypertension) Plan Continue outpatient medications and monitor the blood pressure
[2017-03-21] VITALS (7 sets, daily range): BP systolic 117–158; BP diastolic 57–86
--- NOTE | 2017-03-21 00:18 | ED DISCHARGE INSTRUCTIONS ---
Patient: ELROY BAKER General Instructions [facility] VisitID: [id number] [address] [place] [address] 52y, M Registration Date/Time: 03/20/2017 Acute dyspnea. Acute moderate left ventricular congestive heart failure. Acute moderate left ventricular congestive heart failure. Chronic atrial flutter. The patient has one or more high risk factors and/or two or more moderate risk factors for thromboembolism. The patient is prescribed warfarin or another FDA approved anticoagulant. Morbid obesity (BMI >=40) BMI 64 due to excess calories. Possible Obesity Hyperventilation Syndrome. (Electronically signed by Olivier Sagastume DO 03/21/2017 0:18)
--- NOTE | 2017-03-21 00:18 | ED MAR SUMMARY ---
..... Medication Administration Record [facility] [address] [place] [address] Patient: ELROY BAKER Visit ID: [id number] 52y, M Weight: 238.1 kg Height/Length: 76 in BMI: 63.9 ALLERGIES: Bees, Codeine, Penicillin Given 03/20/2017 Sheriff Rea R.N. Medication Administered: NITROGLYCERIN PASTE [TOPICAL], Dose: 1.5 in. Paste Topical. Medication Ordered: NitroGLYCERIN Paste Topical 1.5 in. (NOW, to ). Given 03/20/2017 Sheriff Rea R.N. Medication Administered: NITROGLYCERIN [SL], Dose: 0.4 mg Tablets SL. Medication Ordered: NitroGLYCERIN SL 0.4 mg (NOW). Given :03/20/2017 Sheriff Rea R.N. Medication Administered: DILAUDID [IVP] (HYDROMORPHONE HCL PF), Dose: 0.5 mg IVP over 1 minute(s), Site: #1 left AC. Medication Ordered: Dilaudid IV 0.5 mg (HIGH ALERT MEDICATION, NOW). Given 03/20/2017 Sheriff Rea R.N. Medication Administered: ZOFRAN [IVP] (ONDANSETRON HCL), Dose: 4 mg IVP over 1 minute(s), Site: #1 left AC. Medication Ordered: Zofran IV 4 mg (NOW). Given 03/20/2017 Sheriff Rea R.N. Medication Administered: LOVENOX [SUBCUTANEOUS] (ENOXAPARIN SODIUM), Dose: 120 mg Subcutaneous. Medication Ordered: Lovenox Subcut 120 mg (HIGH ALERT MEDICATION, NOW).
--- NOTE | 2017-03-21 00:18 | ED DISCHARGE INSTRUCTIONS ---
Patient: ELROY BAKER General Instructions [facility] VisitID: [id number] [address] [place] [address] 52y, M Registration Date/Time: 03/20/2017 Acute dyspnea. Acute moderate left ventricular congestive heart failure. Acute moderate left ventricular congestive heart failure. Chronic atrial flutter. The patient has one or more high risk factors and/or two or more moderate risk factors for thromboembolism. The patient is prescribed warfarin or another FDA approved anticoagulant. Morbid obesity (BMI >=40) BMI 64 due to excess calories. Possible Obesity Hyperventilation Syndrome. (Electronically signed by Olivier Sagastume DO 03/21/2017 0:18)
--- NOTE | 2017-03-21 00:18 | ED MAR SUMMARY ---
..... Medication Administration Record [facility] [address] [place] [address] Patient: ELROY BAKER Visit ID: [id number] 52y, M Weight: 238.1 kg Height/Length: 76 in BMI: 63.9 ALLERGIES: Bees, Codeine, Penicillin Given 03/20/2017 Sheriff Rea R.N. Medication Administered: NITROGLYCERIN PASTE [TOPICAL], Dose: 1.5 in. Paste Topical. Medication Ordered: NitroGLYCERIN Paste Topical 1.5 in. (NOW, to ). Given 03/20/2017 Sheriff Rea R.N. Medication Administered: NITROGLYCERIN [SL], Dose: 0.4 mg Tablets SL. Medication Ordered: NitroGLYCERIN SL 0.4 mg (NOW). Given :03/20/2017 Sheriff Rea R.N. Medication Administered: DILAUDID [IVP] (HYDROMORPHONE HCL PF), Dose: 0.5 mg IVP over 1 minute(s), Site: #1 left AC. Medication Ordered: Dilaudid IV 0.5 mg (HIGH ALERT MEDICATION, NOW). Given 03/20/2017 Sheriff Rea R.N. Medication Administered: ZOFRAN [IVP] (ONDANSETRON HCL), Dose: 4 mg IVP over 1 minute(s), Site: #1 left AC. Medication Ordered: Zofran IV 4 mg (NOW). Given 03/20/2017 Sheriff Rea R.N. Medication Administered: LOVENOX [SUBCUTANEOUS] (ENOXAPARIN SODIUM), Dose: 120 mg Subcutaneous. Medication Ordered: Lovenox Subcut 120 mg (HIGH ALERT MEDICATION, NOW).
--- NOTE | 2017-03-21 00:18 | ED MED RECONCILIATION SUMMARY ---
Patient: ELROY BAKER Medication Reconciliation Report [facility] VisitID: [id number] [address] [place] [address] 52y, M Registration Date/Time: 03/20/2017 Weight: 238.1 kg Height/Length: 76 in. BMI: 63.9 ALLERGIES: Bees, Codeine, Penicillin The patient's Home Medications are listed below: THE FOLLOWING MEDICATIONS NEED TO BE RECONCILED: AmLODIPine Besylate Oral Glipizide Oral 2mg HydrALAZINE HCl Oral Januvia Oral Lisinopril Oral 40 mg MetFORMIN HCl Oral (1000 mg) Metoprolol Tartrate Oral 100 mg Morphine Sulfate ER Beads Oral 60 mg Warfarin Sodium Oral 5 mg The source(s) of the original Home Medication information: Not obtained. The following Medications were given to the patient in the Emergency Department: NITROGLYCERIN PASTE [TOPICAL] Topical 1.5 in., administered: 03/20/2017 10:28:00 PM Nitroglycerin [SL] SL 0.4 mg, administered: 03/20/2017 10:28:00 PM Dilaudid [IVP] IVP 0.5 mg, administered: 03/20/2017 10:29:00 PM Zofran [IVP] IVP 4 mg, administered: 03/20/2017 10:29:00 PM Lovenox [Subcutaneous] Subcutaneous 120 mg, administered: 03/20/2017 10:30:00 PM The following Medications were prescribed to the patient: None.
--- NOTE | 2017-03-21 00:18 | ED MED RECONCILIATION SUMMARY ---
Patient: ELROY BAKER Medication Reconciliation Report [facility] VisitID: [id number] [address] [place] [address] 52y, M Registration Date/Time: 03/20/2017 Weight: 238.1 kg Height/Length: 76 in. BMI: 63.9 ALLERGIES: Bees, Codeine, Penicillin The patient's Home Medications are listed below: THE FOLLOWING MEDICATIONS NEED TO BE RECONCILED: AmLODIPine Besylate Oral Glipizide Oral 2mg HydrALAZINE HCl Oral Januvia Oral Lisinopril Oral 40 mg MetFORMIN HCl Oral (1000 mg) Metoprolol Tartrate Oral 100 mg Morphine Sulfate ER Beads Oral 60 mg Warfarin Sodium Oral 5 mg The source(s) of the original Home Medication information: Not obtained. The following Medications were given to the patient in the Emergency Department: NITROGLYCERIN PASTE [TOPICAL] Topical 1.5 in., administered: 03/20/2017 10:28:00 PM Nitroglycerin [SL] SL 0.4 mg, administered: 03/20/2017 10:28:00 PM Dilaudid [IVP] IVP 0.5 mg, administered: 03/20/2017 10:29:00 PM Zofran [IVP] IVP 4 mg, administered: 03/20/2017 10:29:00 PM Lovenox [Subcutaneous] Subcutaneous 120 mg, administered: 03/20/2017 10:30:00 PM The following Medications were prescribed to the patient: None.
[2017-03-21] MEDS ORDERED: AMLODIPINE BESYL5 MG PO (01:12)
[2017-03-21] MEDS ORDERED: AMARYL1 MG PO (01:13)
[2017-03-21] MEDS ORDERED: LISINOPRIL10 MG PO (01:14)
[2017-03-21] MEDS ORDERED: METFORMIN HCL500 MG PO (01:15)
[2017-03-21] MEDS ORDERED: COUMADIN5 MG PO (01:16)
[2017-03-21] MEDS ORDERED: TOPROL XL50 MG PO (01:17)
[2017-03-21] MEDS ORDERED: HYDRALAZINE HCL25 MG PO (01:18)
[2017-03-21] MEDS ORDERED: JANUVIA25 MG (01:19)
[2017-03-21] MEDS ORDERED: MORPHINE SULFAT60 M2 PO (01:19)
[2017-03-21] MEDS ORDERED: JANUVIA50 MG PO (05:16)
[2017-03-21] MEDS ORDERED: LANTUS SOL100 UNITS/ SC (06:50)
--- NOTE | 2017-03-21 07:47 | Progress Note ---
Subjective General This is a 52-year-old white male who developed shortness of breath started 2 days ago and progressively became worse to the point that patient was not able to sleep so came to emergency for further evaluation. The patient also had a headache which was attributed to the maxilla that he was taking no chest pain. But had the palpitations no cough no sputum no fever but chills patient also had sweats no dizziness Patient feeling better, his main complain is could not sleep because CPAP here was not fitting him right, breathing improved, no chest pain, no nausea or vomiting, Headache resolved Review of system: Respiratory: Improved dyspnea no chest pain GI: Negative for nausea or vomiting Neurology: Headaches resolved feels stronger Physical Exam Vital Signs / I&Os Vital Signs Date Time Temp Pulse Resp B/P Pulse O2 O2 Flow FiO2 Ox Delivery Rate 03/21 0646 97.5 109 17 151/57 96 Nasal 3.0 Cannula 03/21 0530 145/80 03/21 0447 88 17 94 Nasal 4.0 Cannula 03/21 0232 98.1 108 19 143/86 96 Nasal 4.0 Cannula 03/21 0058 2.0 03/21 0007 114 158/83 94 03/21 0000 Nasal 4.0 Cannula 03/20 2352 2.0 03/20 2351 97.3 117 22 156/110 95 Nasal 2.0 Cannula 03/20 2124 2.0 I&O 03/21 0000 03/20 1600 03/20 0800 Intake Total Output Total Balance General Appearance No acute distress Lungs Clear to auscultation Neck Supple, No masses Cardiovascular Regular rate and rhythm, Normal S1 and S2, No murmurs, gallops, rubs Abdomen Normal bowel sounds, Soft, No tenderness Extremities No edema Skin No Rashes Psych/Mental Status Mental status normal, Mood normal LAB Results Laboratory Tests 03/21 03/21 03/21 03/20 03/20 0710 0510 0510 2103 2103 Chemistry Plasma Sodium (136 - 145 mmol/L) 140 139 Plasma Potassium (3.5 - 5.1 mmol/L) 4.3 4.0 Plasma Chloride (98 - 107 mmol/L) 103 101 CO2 (Enzymatic) (21 - 32 mmol/L) 24 22 BUN (7 - 18 mg/dL) 17 15 Creatinine (0.6 - 1.3 mg/dL) 0.7 1.0 Est GFR ( Amer) (mL/min) >60 >60 Est GFR (Non-Af Amer) (mL/min) >60 >60 Glucose (70 - 110 mg/dL) 183 273 Plasma Calcium (8.5 - 10.1 mg/dL) 8.8 9.0 Plasma Magnesium (1.8 - 2.4 mg/dL) 1.7 Total Bilirubin (0.0 - 1.0 mg/dL) 0.3 AST (15 - 37 U/L) 20 ALT (12 - 78 U/L) 38 Alkaline Phosphatase (46 - 116 U/L) 110 Troponin (0.00 - 1.5 ng/mL) Cancelled <0.05 <0.05 B-Natriuretic Peptide (5 - 100 pg/ml) 116 Total Protein (6.4 - 8.2 g/dL) 8.0 Albumin (3.3 - 5.0 g/dL) 3.5 TSH 3rd Generation (0.34 - 3.74 uIU/mL) 2.115 Coagulation INR (0.8 - 1.2) 2.4 2.3 Hematology WBC (4.5 - 11.5 K/uL) 11.3 12.3 RBC (4.50 - 5.90 M/uL) 5.20 5.55 Hgb (13.5 - 17.5 gm/dL) 15.5 16.5 Hct (41.0 - 53.0 %) 46.3 49.3 MCV (80 - 100 fL) 89 89 MCH (26 - 34 pg) 30 30 RDW (11.6 - 14.8 %) 13.8 13.5 Neut % (Auto) (50 - 75 %) 65.5 76.0 Lymph % (Auto) (25 - 40 %) 24.1 17.7 [place] % (Auto) (3 - 14 %) 7.9 4.5 Eos % (Auto) (0 - 4 %) 1.7 1.3 Baso % (Auto) (0 - 2 %) 0.8 0.5 Plt Count, EDTA (150 - 400 K/uL) 185 228 PUBS MCHC (31 - 37 g/dL) 33 33 Microbiology Date/Time Procedure - Status Source Growth 03/21 0520 MRSA Screen - RECD NASAL Assessment and Plan Problem List 1. Acute exacerbation of CHF (congestive heart failure) Plan continue lasix 40mg bid, will have Echo, ambulate today 2. Atrial flutter with rapid ventricular response Plan rate controlled, on warfarin 3. HTN (hypertension) Plan controlled continue current meds 4. DM (diabetes mellitus) Plan controlled continue current meds 5. Sleep apnea Plan will use his own CPAP tonight
[2017-03-22] VITALS (7 sets, daily range): BP systolic 101–158; BP diastolic 57–95
[2017-03-22] MEDS ORDERED: LANTUS SOL100 UNITS/ SC (06:34)
--- NOTE | 2017-03-22 06:43 | Progress Note ---
Subjective General This is a 52-year-old white male who developed shortness of breath started 2 days ago and progressively became worse to the point that patient was not able to sleep so came to emergency for further evaluation. The patient also had a headache which was attributed to the maxilla that he was taking no chest pain. But had the palpitations no cough no sputum no fever but chills patient also had sweats no dizziness Improving, breathing is much better, slept well last night, but has some anxiety , no nausea or vomiting, no cp, no fever or chills Review of system: Respiratory: Improved breathing and no chest pain slept well GI: Negative for nausea or vomiting Constitutional: Negative for fever or chills Physical Exam Vital Signs / I&Os Vital Signs Date Time Temp Pulse Resp B/P Pulse O2 O2 Flow FiO2 Ox Delivery Rate 03/22 0524 158/75 07/ 0521 98.1 79 20 158/75 96 Room Air 03/22 0228 149/86 07/ 0220 98.2 79 18 140/95 97 Nasal 3.0 Cannula 07/ 2345 3.0 07/ 2227 98.1 109 17 131/69 96 Nasal 3.0 Cannula 07/05 2115 137/86 07/05 2057 Nasal 3.0 Cannula 07/05 1918 3.0 07/05 1854 98.8 07/ 1828 81 16 135/75 99 Nasal 3.0 Cannula 07/05 1823 135/75 07/05 1437 97.7 84 22 132/57 96 Nasal 3.0 Cannula 07/05 1221 117/77 07/05 1128 97.7 94 17 117/77 96 Nasal 3.0 Cannula 07/05 1036 Nasal 3.0 Cannula 07/05 0745 3.0 07/05 0646 97.5 109 17 151/57 96 Nasal 3.0 Cannula I&O /06 0000 07/05 1600 07/05 0800 Intake Total 1594 1020 450 Output Total 1850 1550 1300 Balance -256 -530 -850 General Appearance No acute distress Lungs Clear to auscultation Neck Supple, No masses Cardiovascular Regular rate and rhythm, Normal S1 and S2, No murmurs, gallops, rubs Abdomen Normal bowel sounds, Soft, No tenderness Extremities No edema Skin No Rashes LAB Results Laboratory Tests 03/22 03/21 03/21 03/21 0510 1510 1255 0710 Chemistry Plasma Sodium (136 - 145 mmol/L) 141 Plasma Potassium (3.5 - 5.1 mmol/L) 4.5 Plasma Chloride (98 - 107 mmol/L) 102 CO2 (Enzymatic) (21 - 32 mmol/L) 30 BUN (7 - 18 mg/dL) 18 Creatinine (0.6 - 1.3 mg/dL) 0.8 Est GFR ( Amer) (mL/min) >60 Est GFR (Non-Af Amer) (mL/min) >60 Glucose (70 - 110 mg/dL) 163 Plasma Calcium (8.5 - 10.1 mg/dL) 8.7 Troponin (0.00 - 1.5 ng/mL) Cancelled <0.05 Cancelled Coagulation INR (0.8 - 1.2) 2.5 Hematology WBC (4.5 - 11.5 K/uL) 10.9 RBC (4.50 - 5.90 M/uL) 5.13 Hgb (13.5 - 17.5 gm/dL) 15.6 Hct (41.0 - 53.0 %) 45.8 MCV (80 - 100 fL) 89 MCH (26 - 34 pg) 30 RDW (11.6 - 14.8 %) 13.8 Neut % (Auto) (50 - 75 %) 58.6 Lymph % (Auto) (25 - 40 %) 30.0 [place] % (Auto) (3 - 14 %) 9.0 Eos % (Auto) (0 - 4 %) 2.0 Baso % (Auto) (0 - 2 %) 0.4 Plt Count, EDTA (150 - 400 K/uL) 192 PUBS MCHC (31 - 37 g/dL) 34 Assessment and Plan Problem List 1. Acute dyspnea Plan this is due to pulmonary congestion also pickwickian synd, echo is pending, continue lasix, ambulate as tolerated possible discharge in AM, pt has electeric chair at home 2. Atrial flutter with rapid ventricular response Plan Change Norvasc to diltiazem 180 mg daily since heart rate is volatile 3. DM (diabetes mellitus) Plan controlled continue current meds 4. HTN (hypertension) Plan Under control continue current medications
--- NOTE | 2017-03-22 14:48 | DIAGNOSTIC IMAGING REPORT ---
PROCEDURE: US ECHOCARDIOGRAM LIMITED INDICATION: SOB TECHNIQUE: echocardiogram COMPARISON: None available FINDINGS: Severely technically difficult study characterized by limited endocardial visualization. Only 2 out of 17 endocardial segments are available for review. Rhythm is not clearly identified due to significant artifact noted on EKG tracings obtained during procedure. Only basal anteroseptal segment and mid-anterior segment are clearly visualized. They demonstrate normal wall motion. Due to limited visualization I can not comment on wall motion of other segments nor on LV function. Out of 4 standard views, only parasternal long axis and short axis views are available; no apical, nor subcostal views are seen. Valves are not well seen. I can not comment on chamber sizes due to limited visualization. IMPRESSION: 1. Technically difficult echo precludes meaningful interpretation. 2. Only limited parasternal long and parasternal short axis views are available; no M mode, nor color flow Doppler views are seen. No 4 chamber apical view, no 2 chamber apical view and no subcostal view is available. No prior study available for comparison.
[2017-03-23 02:08] VITALS: BP 138/80
[2017-03-23] MEDS ORDERED: DILTIAZEM HCL180 M1 PO (06:15)
[2017-03-23] MEDS ORDERED: FUROSEMIDE10 MG/ML PO (06:15)
[2017-03-23] MEDS ORDERED: KLOR-CON 1010 MEQ PO (06:15)
[2017-03-23 07:13] VITALS: BP 166/88
--- NOTE | 2017-03-23 07:48 | Discharge Summary ---
Discharge Summary Report Admit Date 03/20/17 Discharge Date 03/23/17 Admission Diagnosis 1-CHF exacerbation 2-atrial flutter 3-diabetes mellitus 4-hypertension Discharge Diagnosis 1-pulmonary congestion 2-atrial flutter. 3-diabetes mellitus 4-hypertension Brief History This is a 52-year-old white male who developed shortness of breath started 2 days ago and progressively became worse to the point that patient was not able to sleep so came to emergency for further evaluation. The patient also had a headache which was attributed to the maxilla that he was taking no chest pain. But had the palpitations no cough no sputum no fever but chills patient also had sweats no dizziness Hospital Course The patient was admitted to acute care telemetry inpatient. He was started on Lasix 40 mg twice a day with the monitoring of the electrolytes. His atrial flutter was issue in this hospitalization meaning his heart rate will go extremely high with a slightest activity. Norvasc change to diltiazem for this reason which was helpful. Echocardiogram done but it was nonconclusive due to obesity. Patient improved during the hospital course he is doing much better today his breathing is back to baseline and no chest pain he has no nausea or vomiting no fever no chills and ambulating fairly well. So patient will be discharged home. Patient to follow with his primary care doctor within 1 week. I recommended to see marketing content specialist. Continue outpatient medications except that patient is Norvasc changed to diltiazem 180 mg daily, Lasix 40 mg twice a day added along with potassium 20 mEq daily. Also prescription for BiPAP was signed. General Appearance No acute distress Lungs Clear to auscultation Cardiovascular Regular Rate, Normal S1, Normal S2, No murmurs Abdomen Soft, No tenderness, No hepatospenomegaly Skin No Rashes Psych/Mental Status Mental status NL Lab/Imaging Laboratory Tests 03/23 0440 Chemistry Plasma Sodium (136 - 145 mmol/L) 141 Plasma Potassium (3.5 - 5.1 mmol/L) 4.2 Plasma Chloride (98 - 107 mmol/L) 102 CO2 (Enzymatic) (21 - 32 mmol/L) 31 BUN (7 - 18 mg/dL) 22 Creatinine (0.6 - 1.3 mg/dL) 1.0 Est GFR ( Amer) (mL/min) >60 Est GFR (Non-Af Amer) (mL/min) >60 Glucose (70 - 110 mg/dL) 186 Plasma Calcium (8.5 - 10.1 mg/dL) 8.3 Coagulation INR (0.8 - 1.2) 2.5 Hematology WBC (4.5 - 11.5 K/uL) 9.6 RBC (4.50 - 5.90 M/uL) 4.91 Hgb (13.5 - 17.5 gm/dL) 14.7 Hct (41.0 - 53.0 %) 44.1 MCV (80 - 100 fL) 90 MCH (26 - 34 pg) 30 RDW (11.6 - 14.8 %) 13.9 Neut % (Auto) (50 - 75 %) 58.3 Lymph % (Auto) (25 - 40 %) 30.0 [place] % (Auto) (3 - 14 %) 8.9 Eos % (Auto) (0 - 4 %) 2.2 Baso % (Auto) (0 - 2 %) 0.6 Plt Count, EDTA (150 - 400 K/uL) 186 PUBS MCHC (31 - 37 g/dL) 33 Discharge Instructions/Meds Follow-up with his primary care physician within one week. Recommend referral to marketing content specialist.
== END 2017-03-23 09:00 | disposition home or self-care (01) | DRG 143 ==
LOC: ED SRH 20:46 → TRANS SRH 22:35 → CC SRH 23:30
PROVIDERS: ADMIT Emergency Medicine
PROC: 5A09357 Assistance with Respiratory Ventilation, Less than 24 Consecutive Hours, Continuous Positive Airway Pressure (ICD-10-PCS; principal; 2017-03-21)
DX: E66.2 Morbid (severe) obesity with alveolar hypoventilation (principal); Z68.44 Body mass index [BMI] 60.0-69.9, adult; R09.89 Other specified symptoms and signs involving the circulatory and respiratory systems; I27.2 Other secondary pulmonary hypertension; I10 Essential (primary) hypertension; J44.9 Chronic obstructive pulmonary disease, unspecified; J96.10 Chronic respiratory failure, unspecified whether with hypoxia or hypercapnia; I48.92 Unspecified atrial flutter; E11.9 Type 2 diabetes mellitus without complications; Z79.01 Long term (current) use of anticoagulants; Z79.84 Long term (current) use of oral hypoglycemic drugs
CPT/HCPCS: 90004; 90047; 90074; 90098; 90100; 90616; 91320; 92132; 92720; 93140; 94060; 95059